=== PATIENT | female | born 1940 | race Caucasian/White ===

== ENCOUNTER 2017-02-11 11:02 | Emergency (ER) | payer MEDICARE, OTHER ==
[2017-02-11] MEDS ORDERED: Sodium Chloride 0.9% 10 ML Syringe FLUSH PRN (11:11)
[2017-02-11] MEDS ORDERED: Midazolam 1 MG/ML 2 ML SDV ONE (11:22)
[2017-02-11] MEDS ORDERED: Midazolam 1 MG/ML 2 ML SDV IVPUSH ONE (11:22)
[2017-02-11 11:47] LABS: CHLORIDE,CL 100 mmol/L (101-111); SODIUM,NA 139 mmol/L (135-145)
--- NOTE | 2017-02-11 11:57 | EDM.PDOC ---
ED HPI GENERAL MEDICAL PROBLEM - General Chief Complaint: Neurological Problem Stated Complaint: IN BY AMBULANCE Time Seen by Provider: 02/11/17 11:05 Source of Information: Reports: Patient, EMS, Family (), Old Records, RN , RN Notes Reviewed History Limitations: Reports: Altered Mental Status - History of Present Illness INITIAL COMMENTS - FREE TEXT/NARRATIVE: Arrives from home by ambulance with reporting a witnessed seizure of approx. 1 min. duration which consisted of generalized jerking movements and rigid posturing while pt was in a recliner chair. Pt did not fall from the chair. believes she bit her tongue because she had a small amt. of blood on her lip. Pt has dementia and the cares for her at home. Pt is postical on arrival, and once she began to wake up she could give no useful history due to her dementia. believes that she is somewhat more confused than her baseline. reports pt was well and at her normal baseline this morning prior to the seizure. Onset: Today, Sudden Duration: Resolved Prior to Arrival Location: Reports: Generalized Improves with: Reports: None Worsens with: Reports: None Associated Symptoms: Reports: No Other Symptoms - Related Data Allergies Allergy/AdvReac Type Severity Reaction Status Date / Time bupropion HCl Allergy Depression Verified 09/02/14 16:13 [From Wellbutrin] sulfamethoxazole Allergy Rash Verified 09/02/14 16:13 [From Bactrim] trimethoprim [From Bactrim] Allergy Rash Verified 09/02/14 16:13 Home Meds: Home Meds Levothyroxine 75 mcg PO ACBREAKFAST 09/02/14 [History] Metoprolol Succinate 200 mg PO DAILY 09/02/14 [History] Sertraline HCl [Zoloft] 150 mg PO DAILY 09/02/14 [History] cloNIDine [cloNIDine HCl] 0.1 mg PO BID 09/02/14 [History] Past Medical History Cardiovascular History: Reports: Hypertension Psychiatric History: Reports: Dementia Endocrine/Metabolic History: Reports: Hypothyroidism, Obesity/BMI 30+ Social & Family History - Family History Family Medical History: Noncontributory - Tobacco Use Smoking Status *Q: Never Smoker - Recreational Drug Use Recreational Drug Use: No - Living Situation & Occupation Living situation: Reports: , with Spouse Occupation: Retired ED ROS GENERAL - Review of Systems Review Of Systems: Unable To Obtain (due to confusion/dementia) - Physical Exam Exam: See Below Exam Limited By: Altered Mental Status General Appearance: No Apparent Distress, Obese, Other (postictal on arrival) Eye Exam: Bilateral Eye: EOMI, Normal Inspection, PERRL Ears: Normal External Exam, Hearing Grossly Normal Nose: Normal Inspection Throat/Mouth: Normal Lips, Normal Voice, Other (small tongue laceration) Head Exam: Atraumatic, Normocephalic Neck: Normal Inspection, Supple, Non-Tender, Full Range of Motion Respiratory/Chest: No Respiratory Distress, Lungs Clear, No Accessory Muscle Use , Chest Non-Tender, Decreased Breath Sounds Cardiovascular: Tachycardia, Irregularly Irregular GI/Abdominal: Normal Bowel Sounds, Soft, Non-Tender, No Distention, Other ( benign obese abdomen) (Female) Exam: Deferred Rectal (Female) Exam: Deferred Neuro Exam (Abbreviated): No Motor/Sensory Deficits, Confused, Disoriented, Slow to Respond Back Exam: Normal Inspection Extremities: Normal Inspection, Normal Range of Motion, Non-Tender Psychiatric: Flat Affect Skin Exam: Warm, Dry, Intact EKG INTERPRETATION EKG Date: 02/11/17 Time: 11:24 Rhythm: A-Fib Rate (Beats/Min): 96 [place]: Normal P-Wave: Absent QRS: Other (abnormal R wave progression) ST-T: Other (non-specific T-wave abnormalities) QT: Normal Comparison: No Change EKG Interpretation Comments: No acute ischemic changes. Course - Vital Signs Last Recorded V/S: Last Vital Signs Temp 36.6 C 02/11/17 11:55 Pulse 106 H 02/11/17 11:55 Resp 20 02/11/17 11:55 BP 184/85 H 02/11/17 11:55 Pulse Ox 97 02/11/17 11:55 - Orders/Labs/Meds Orders: Active Orders 24 hr Category Date Time Status Blood Glucose Check, Bedside [RC] ONETIME Care 02/11/17 11:11 Active EKG 12 Lead [EKG Documentation Completion] [RC] STAT Care 02/11/17 11:10 Active Peripheral IV Care [RC] . DIRECTED Care 02/11/17 11:11 Active CULTURE BLOOD [BC] Stat Lab 02/11/17 11:13 Results CULTURE BLOOD [BC] Stat Lab 02/11/17 12:02 Received Sodium Chloride 0.9% [Saline Flush] Med 02/11/17 11:11 Active 10 ml FLUSH ASDIRECTED PRN Blood Culture x2 Reflex Set [OM.PC] Stat Oth 02/11/17 11:10 Ordered Peripheral IV Insertion Adult [OM.PC] Stat Oth 02/11/17 11:10 Ordered Seizure Precautions [OM.PC] Routine Oth 02/11/17 11:11 Ordered Medication Orders Sodium Chloride (Saline Flush) 10 ml FLUSH ASDIRECTED PRN PRN Reason: Keep Vein Open Labs: Laboratory Tests 02/11/17 02/11/17 02/11/17 Range/Units 11:13 11:13 11:13 WBC 9.8 (5.0-10.0) 10^3/uL RBC 4.84 (4.2-5.4) 10^6/uL Hgb 15.0 (12.0-16.0) g/dL Hct 43.9 (37.0-47.0) % MCV 90.7 (80-100) fL MCH 31.0 (27.0-34.0) pg MCHC 34.2 (33.0-35.0) g/dL Plt Count 291 (150-450) 10^3/uL Neut % (Auto) 60.0 (42.2-75.2) % Lymph % (Auto) 31.2 (20.5-50.1) % [place] % (Auto) 6.9 (2-8) % Eos % (Auto) 1.5 (1.0-3.0) % Baso % (Auto) 0.4 (0.0-1.0) % PT 9.8 (9.0-12.0) SEC INR 1.0 (0.9-1.2) APTT 24.1 (22.0-34.0) SEC Sodium 139 (135-145) mmol/L Potassium 3.2 L (3.6-5.0) mmol/L Chloride 100 L (101-111) mmol/L Carbon Dioxide 20.0 L (21.0-31.0) mmol/L Anion Gap 22.2 BUN 18 (7-18) mg/dL Creatinine 1.1 (0.6-1.3) mg/dL Est Cr Clr Drug Dosing TNP Estimated GFR (MDRD) 48 BUN/Creatinine Ratio 16.36 Glucose 148 H (74-105) mg/dL POC Glucose (83-110) mg/dl Lactic Acid (0.5-2.2) mmol/L Calcium 9.5 (8.4-10.2) mg/dl Magnesium 2.1 (1.8-2.5) mg/dL Total Bilirubin 0.7 (0.2-1.0) mg/dL AST 32 (10-42) IU/L ALT 17 (10-60) IU/L Alkaline Phosphatase 63 (42-121) IU/L Lactate Dehydrogenase 124 (91-180) IU/L Creatine Kinase 39 (26-174) IU/L Troponin I < 0.02 (0.00-0.02) ng/ml Total Protein 7.2 (6.7-8.2) g/dl Albumin 4.5 (3.2-5.5) g/dl Globulin 2.7 Albumin/Globulin Ratio 1.67 Urine Color (YELLOW) Urine Appearance (CLEAR) Urine pH (5.0-9.0) Ur Specific [place] (1.005-1.030) Urine Protein (NEGATIVE) Urine Glucose (UA) (NEGATIVE) Urine Ketones (NEGATIVE) Urine Occult Blood (NEGATIVE) Urine Nitrite (NEGATIVE) Urine Bilirubin (NEGATIVE) Urine Urobilinogen (0.2-1.0) mg/dL Ur Leukocyte Esterase (NEGATIVE) Urine RBC /HPF Urine WBC (0-5/HPF) /HPF Ur Epithelial Cells /HPF Urine Bacteria (0-FEW/HPF) /HPF Hyaline Casts /LPF Fine Granular Casts (0/LPF) /LPF Urine Mucus /LPF Urine Opiates Screen (NEGATIVE) Ur Oxycodone Screen (NEGATIVE) Urine Methadone Screen (NEGATIVE) Ur Barbiturates Screen (NEGATIVE) U Tricyclic Antidepress (NEGATIVE) Ur Phencyclidine Scrn (NEGATIVE) Ur Amphetamine Screen (NEGATIVE) U Methamphetamines Scrn (NEGATIVE) Urine MDMA Screen (NEGATIVE) U Benzodiazepines Scrn (NEGATIVE) Urine Cocaine Screen (NEGATIVE) U Marijuana (THC) Screen (NEGATIVE) Ethyl Alcohol < 5 mg/dL 02/11/17 02/11/17 02/11/17 Range/Units 11:13 11:53 11:53 WBC (5.0-10.0) 10^3/uL RBC (4.2-5.4) 10^6/uL Hgb (12.0-16.0) g/dL Hct (37.0-47.0) % MCV (80-100) fL MCH (27.0-34.0) pg MCHC (33.0-35.0) g/dL Plt Count (150-450) 10^3/uL Neut % (Auto) (42.2-75.2) % Lymph % (Auto) (20.5-50.1) % [place] % (Auto) (2-8) % Eos % (Auto) (1.0-3.0) % Baso % (Auto) (0.0-1.0) % PT (9.0-12.0) SEC INR (0.9-1.2) APTT (22.0-34.0) SEC Sodium (135-145) mmol/L Potassium (3.6-5.0) mmol/L Chloride (101-111) mmol/L Carbon Dioxide (21.0-31.0) mmol/L Anion Gap BUN (7-18) mg/dL Creatinine (0.6-1.3) mg/dL Est Cr Clr Drug Dosing Estimated GFR (MDRD) BUN/Creatinine Ratio Glucose (74-105) mg/dL POC Glucose (83-110) mg/dl Lactic Acid 7.0 H (0.5-2.2) mmol/L Calcium (8.4-10.2) mg/dl Magnesium (1.8-2.5) mg/dL Total Bilirubin (0.2-1.0) mg/dL AST (10-42) IU/L ALT (10-60) IU/L Alkaline Phosphatase (42-121) IU/L Lactate Dehydrogenase (91-180) IU/L Creatine Kinase (26-174) IU/L Troponin I (0.00-0.02) ng/ml Total Protein (6.7-8.2) g/dl Albumin (3.2-5.5) g/dl Globulin Albumin/Globulin Ratio Urine Color Yellow (YELLOW) Urine Appearance Slightly cloudy (CLEAR) Urine pH 6.5 (5.0-9.0) Ur Specific [place] 1.020 (1.005-1.030) Urine Protein 30 H (NEGATIVE) Urine Glucose (UA) Negative (NEGATIVE) Urine Ketones Negative (NEGATIVE) Urine Occult Blood Trace-intact H (NEGATIVE) Urine Nitrite Negative (NEGATIVE) Urine Bilirubin Negative (NEGATIVE) Urine Urobilinogen 0.2 (0.2-1.0) mg/dL Ur Leukocyte Esterase Negative (NEGATIVE) Urine RBC 0-5 /HPF Urine WBC 0-5 (0-5/HPF) /HPF Ur Epithelial Cells Few /HPF Urine Bacteria Rare (0-FEW/HPF) /HPF Hyaline Casts Moderate H /LPF Fine Granular Casts Few H (0/LPF) /LPF Urine Mucus Few H /LPF Urine Opiates Screen Negative (NEGATIVE) Ur Oxycodone Screen Negative (NEGATIVE) Urine Methadone Screen Negative (NEGATIVE) Ur Barbiturates Screen Negative (NEGATIVE) U Tricyclic Antidepress Negative (NEGATIVE) Ur Phencyclidine Scrn Negative (NEGATIVE) Ur Amphetamine Screen Negative (NEGATIVE) U Methamphetamines Scrn Negative (NEGATIVE) Urine MDMA Screen Negative (NEGATIVE) U Benzodiazepines Scrn Negative (NEGATIVE) Urine Cocaine Screen Negative (NEGATIVE) U Marijuana (THC) Screen Negative (NEGATIVE) Ethyl Alcohol mg/dL 02/11/ Range/Units 12:06 WBC (5.0-10.0) 10^3/uL RBC (4.2-5.4) 10^6/uL Hgb (12.0-16.0) g/dL Hct (37.0-47.0) % MCV (80-100) fL MCH (27.0-34.0) pg MCHC (33.0-35.0) g/dL Plt Count (150-450) 10^3/uL Neut % (Auto) (42.2-75.2) % Lymph % (Auto) (20.5-50.1) % [place] % (Auto) (2-8) % Eos % (Auto) (1.0-3.0) % Baso % (Auto) (0.0-1.0) % PT (9.0-12.0) SEC INR (0.9-1.2) APTT (22.0-34.0) SEC Sodium (135-145) mmol/L Potassium (3.6-5.0) mmol/L Chloride (101-111) mmol/L Carbon Dioxide (21.0-31.0) mmol/L Anion Gap BUN (7-18) mg/dL Creatinine (0.6-1.3) mg/dL Est Cr Clr Drug Dosing Estimated GFR (MDRD) BUN/Creatinine Ratio Glucose (74-105) mg/dL POC Glucose 105 (83-110) mg/dl Lactic Acid (0.5-2.2) mmol/L Calcium (8.4-10.2) mg/dl Magnesium (1.8-2.5) mg/dL Total Bilirubin (0.2-1.0) mg/dL AST (10-42) IU/L ALT (10-60) IU/L Alkaline Phosphatase (42-121) IU/L Lactate Dehydrogenase (91-180) IU/L Creatine Kinase (26-174) IU/L Troponin I (0.00-0.02) ng/ml Total Protein (6.7-8.2) g/dl Albumin (3.2-5.5) g/dl Globulin Albumin/Globulin Ratio Urine Color (YELLOW) Urine Appearance (CLEAR) Urine pH (5.0-9.0) Ur Specific [place] (1.005-1.030) Urine Protein (NEGATIVE) Urine Glucose (UA) (NEGATIVE) Urine Ketones (NEGATIVE) Urine Occult Blood (NEGATIVE) Urine Nitrite (NEGATIVE) Urine Bilirubin (NEGATIVE) Urine Urobilinogen (0.2-1.0) mg/dL Ur Leukocyte Esterase (NEGATIVE) Urine RBC /HPF Urine WBC (0-5/HPF) /HPF Ur Epithelial Cells /HPF Urine Bacteria (0-FEW/HPF) /HPF Hyaline Casts /LPF Fine Granular Casts (0/LPF) /LPF Urine Mucus /LPF Urine Opiates Screen (NEGATIVE) Ur Oxycodone Screen (NEGATIVE) Urine Methadone Screen (NEGATIVE) Ur Barbiturates Screen (NEGATIVE) U Tricyclic Antidepress (NEGATIVE) Ur Phencyclidine Scrn (NEGATIVE) Ur Amphetamine Screen (NEGATIVE) U Methamphetamines Scrn (NEGATIVE) Urine MDMA Screen (NEGATIVE) U Benzodiazepines Scrn (NEGATIVE) Urine Cocaine Screen (NEGATIVE) U Marijuana (THC) Screen (NEGATIVE) Ethyl Alcohol mg/dL Meds: Medications Generic Name Dose Route Start Last Admin Trade Name Freq PRN Reason Stop Dose Admin Sodium Chloride 10 ml 02/11/17 11:11 Saline Flush FLUSH ASDIRECTED PRN Keep Vein Open Discontinued Medications Generic Name Dose Route Start Last Admin Trade Name Freq PRN Reason Stop Dose Admin Midazolam HCl 2 mg 02/11/17 11:22 02/11/17 11:23 Versed 1 Mg/Ml IVPUSH 02/11/17 11:23 2 mg ONETIME ONE Administration Midazolam HCl Confirm 02/11/17 11:22 Versed 1 Mg/Ml Administered 02/11/17 11:23 Dose 2 mg .ROUTE .STK-MED ONE - Radiology Interpretation Free Text/Narrative:: CT Head: no acute changes, see Rad. report. CXR: no acute process, see Rad. report. CT Results Date: 02/11/17 CT Results Time: 11:35 Departure - Departure Time of Disposition: 12:41 Disposition: DC/Tfer to [facility] 02 Condition: Undetermined Clinical Impression: New onset seizure, Dementia - Discharge Information Referrals: Merly Kulkarni MD [Primary Care Provider] - Forms: ED Department Discharge, Interfacility Transfer EMTALA - My Orders Last 24 Hours: My Active Orders 02/11/17 11:10 EKG 12 Lead [EKG Documentation Completion] [RC] STAT Blood Culture x2 Reflex Set [OM.PC] Stat Peripheral IV Insertion Adult [OM.PC] Stat 02/11/17 11:11 Blood Glucose Check, Bedside [RC] ONETIME Peripheral IV Care [RC] . DIRECTED Sodium Chloride 0.9% [Saline Flush] 10 ml FLUSH ASDIRECTED PRN Seizure Precautions [OM.PC] Routine 02/11/17 11:13 CULTURE BLOOD [BC] Stat 02/11/17 12:02 CULTURE BLOOD [BC] Stat - Assessment/Plan Last 24 Hours: My Active Orders 02/11/17 11:10 EKG 12 Lead [EKG Documentation Completion] [RC] STAT Blood Culture x2 Reflex Set [OM.PC] Stat Peripheral IV Insertion Adult [OM.PC] Stat 02/11/17 11:11 Blood Glucose Check, Bedside [RC] ONETIME Peripheral IV Care [RC] . DIRECTED Sodium Chloride 0.9% [Saline Flush] 10 ml FLUSH ASDIRECTED PRN Seizure Precautions [OM.PC] Routine 02/11/17 11:13 CULTURE BLOOD [BC] Stat 02/11/17 12:02 CULTURE BLOOD [BC] Stat
--- NOTE | 2017-02-19 18:34 | EKG ---
02/11/2017 - JAGJIT COLON - This 12-lead EKG shows atrial fibrillation with an average ventricular rate of 96 (72 to 117). Normal axis. No acute ST-segment or T-wave changes. [facility] /[id number]
== END 2017-02-11 13:50 ==
LOC: DL.ED 11:02
DX: R56.9 Unspecified convulsions (principal); F03.90 Unspecified dementia, unspecified severity, without behavioral disturbance, psychotic disturbance, mood disturbance, and anxiety; I10 Essential (primary) hypertension; Z88.2 Allergy status to sulfonamides; Z88.1 Allergy status to other antibiotic agents; Z79.899 Other long term (current) drug therapy
CPT/HCPCS: 36415; 51701; 70450; 71010; 80053; 80305; 81001; 82550; 82962; 83605; 83615; 83735; 84484; 85025; 85610; 85730; 87040; 93005; 96374; 99285; G0480; J2250; J7050; 93010

== ENCOUNTER 2019-02-07 09:36 | Inpatient (IN) | payer MEDICARE, OTHER ==
[2019-02-07 10:11] LABS: ANION GAP 12.9; CHLORIDE,CL 103 mmol/L (101-111); SODIUM,NA 139 mmol/L (135-145)
--- NOTE | 2019-02-07 12:03 | EDM.PDOC ---
ED HPI GENERAL MEDICAL PROBLEM - General Chief Complaint: Neurological Problem Stated Complaint: AMBULANCE Time Seen by Provider: 02/07/19 11:30 Source of Information: Reports: Patient, Family () History Limitations: Reports: No Limitations - History of Present Illness INITIAL COMMENTS - FREE TEXT/NARRATIVE: This 78 yo female patient was brought to the ED by [facility] due to profound weakness. The patient's reports he found her in the hallway this morning after hearing a "thump". The reports he lifted her onto a chair then assisted her to the bathroom. The patient had a loose bowel movement. When she got up to wash her hands, the patient's legs were "wobbly" and the called the ambulance. The patient has a history of dementia and does not walk around the house too much. The reports the patient did not have a loss of consciousness. The patient reports no current areas of pain. The reports the patient has been keeping 1 eye closed for the past year. The patient reports no areas of weakness at this time. Onset: Today Location: Reports: Generalized Quality: Reports: Other Severity: Moderate Improves with: Reports: None Worsens with: Reports: None Context: Reports: Other Associated Symptoms: Reports: No Other Symptoms - Related Data Allergies Allergy/AdvReac Type Severity Reaction Status Date / Time bupropion HCl Allergy Depression Verified 02/07/19 09:46 [From Wellbutrin] sulfamethoxazole Allergy Rash Verified 02/07/19 09:46 [From Bactrim] trimethoprim [From Bactrim] Allergy Rash Verified 02/07/19 09:46 Home Meds: Home Meds Levothyroxine 75 mcg PO ACBREAKFAST 09/02/14 [History] Metoprolol Succinate 100 mg PO DAILY 09/02/14 [History] Sertraline HCl [Zoloft] 150 mg PO DAILY 09/02/14 [History] Aspirin 325 mg PO DAILY 02/11/17 [History] amLODIPine Besylate [Amlodipine Besylate] 10 mg PO DAILY 02/07/19 [History] levETIRAcetam [Levetiracetam] 250 mg PO BID 02/07/19 [History] Past Medical History Cardiovascular History: Reports: Hypertension Neurological History: Reports: Other (See Below) Other Neuro History: severe dementia Psychiatric History: Reports: Dementia Endocrine/Metabolic History: Reports: Hypothyroidism, Obesity/BMI 30+ - Past Surgical History HEENT Surgical History: Reports: Tonsillectomy Female Surgical History: Reports: Cystectomy Social & Family History - Family History Family Medical History: Noncontributory - Tobacco Use Smoking Status *Q: Unknown Ever Smoked - Caffeine Use Caffeine Use: Reports: Soda - Recreational Drug Use Recreational Drug Use: No - Living Situation & Occupation Living situation: Reports: , with Spouse Occupation: Retired ED ROS GENERAL - Review of Systems Review Of Systems: Comprehensive ROS is negative, except as noted in HPI. ED EXAM, NEURO - Physical Exam Exam: See Below Exam Limited By: No Limitations General Appearance: Alert, WD/WN, No Apparent Distress Eye Exam: Bilateral Eye: EOMI, Normal Inspection, PERRL Ears: Normal External Exam, Normal Canal, Hearing Grossly Normal, Normal TMs Nose: Normal Inspection, Normal Mucosa, No Blood Throat/Mouth: Normal Inspection, Normal Lips, Normal Teeth, Normal Gums, Normal Oropharynx, Normal Voice, No Airway Compromise Head Exam: Atraumatic, Normocephalic Neck: Normal Inspection, Supple, Non-Tender, Full Range of Motion Respiratory/Chest: No Respiratory Distress, Lungs Clear, Normal Breath Sounds, No Accessory Muscle Use, Chest Non-Tender Cardiovascular: No Edema, No Gallop, No JVD, No Murmur, No Rub, Irregularly Irregular GI/Abdominal: Normal Bowel Sounds, Soft, Non-Tender, No Organomegaly, No Distention, No Abnormal Bruit, No Mass (Female) Exam: Deferred Rectal (Female) Exam: Deferred Neurological: Alert, Normal Mood/Affect, Normal Dorsiflexion, CN II-XII Intact, Normal Plantar Flexion Back Exam: Normal Inspection, Full Range of Motion, NT Extremities: Normal Inspection, Normal Range of Motion, Non-Tender, No Pedal Edema, Normal Capillary Refill Psychiatric: Normal Affect, Normal Mood Skin Exam: Warm, Dry, Intact, Normal Color, No Rash Course - Vital Signs Last Recorded V/S: Last Vital Signs Temp 36.6 C 02/07/19 09:43 Pulse 86 02/07/19 09:43 Resp 18 02/07/19 09:43 BP 145/63 H 02/07/19 09:43 Pulse Ox 100 02/07/19 09:43 Orthostatic Blood Pressure [ 114/75 Standing] Orthostatic Blood Pressure [ 125/84 Sitting] Orthostatic Blood Pressure [ 151/75 Supine] - Orders/Labs/Meds Orders: Active Orders 24 hr Category Date Time Status EKG Documentation Completion [RC] URGENT Care 02/07/19 09:45 Active CULTURE BLOOD [BC] Stat Lab 02/07/19 14:15 Ordered CULTURE BLOOD [BC] Stat Lab 02/07/19 14:15 Ordered CULTURE URINE [RM] Urgent Lab 02/07/19 09:56 Received LEVETIRACETAM, S [REF] Urgent Lab 02/07/19 09:32 Received Blood Culture x2 Reflex Set [OM.PC] Stat Oth 02/07/19 14:15 Ordered Labs: Laboratory Tests 02/07/19 02/07/19 02/07/19 Range/Units 09:32 09:32 09:56 WBC 5.5 (5.0-10.0) 10^3/uL RBC 4.58 (4.2-5.4) 10^6/uL Hgb 14.1 (12.0-16.0) g/dL Hct 42.1 (37.0-47.0) % MCV 91.9 (80-100) fL MCH 30.8 (27.0-34.0) pg MCHC 33.5 (33.0-35.0) g/dL Plt Count 191 D (150-450) 10^3/uL Neut % (Auto) 65.9 (42.2-75.2) % Lymph % (Auto) 25.2 (20.5-50.1) % [place] % (Auto) 7.1 (2-8) % Eos % (Auto) 1.6 (1.0-3.0) % Baso % (Auto) 0.2 (0.0-1.0) % Sodium 139 (135-145) mmol/L Potassium 3.9 (3.6-5.0) mmol/L Chloride 103 (101-111) mmol/L Carbon Dioxide 27.0 (21.0-31.0) mmol/L Anion Gap 12.9 BUN 15 (7-18) mg/dL Creatinine 1.0 (0.6-1.3) mg/dL Est Cr Clr Drug Dosing TNP Estimated GFR (MDRD) 54 BUN/Creatinine Ratio 15.00 Glucose 117 H (74-105) mg/dL Calcium 9.1 (8.4-10.2) mg/dl Total Bilirubin 1.0 (0.2-1.0) mg/dL AST 25 (10-42) IU/L ALT 20 (10-60) IU/L Alkaline Phosphatase 54 (42-121) IU/L Troponin I < 0.02 (0.00-0.02) ng/ml Total Protein 6.4 L (6.7-8.2) g/dl Albumin 4.1 (3.2-5.5) g/dl Globulin 2.3 Albumin/Globulin Ratio 1.78 Urine Color Yellow (YELLOW) Urine Appearance Slightly cloudy (CLEAR) Urine pH 7.0 (5.0-9.0) Ur Specific [place] 1.020 (1.005-1.030) Urine Protein Negative (NEGATIVE) Urine Glucose (UA) Negative (NEGATIVE) Urine Ketones Negative (NEGATIVE) Urine Occult Blood Negative (NEGATIVE) Urine Nitrite Positive H (NEGATIVE) Urine Bilirubin Negative (NEGATIVE) Urine Urobilinogen 0.2 (0.2-1.0) mg/dL Ur Leukocyte Esterase Small H (NEGATIVE) Urine RBC 0-5 /HPF Urine WBC 10-20 H (0-5/HPF) /HPF Ur Epithelial Cells Rare (NOT SEEN) /HPF Amorphous Sediment Moderate H (NOT SEEN) /HPF Urine Bacteria Many H (0-FEW/HPF) /HPF Urine Mucus Not seen (NOT SEEN) /LPF Departure - Departure Time of Disposition: 14:16 Disposition: Admitted As Inpatient 66 Condition: Fair Clinical Impression: Weakness UTI (urinary tract infection) Qualifiers: Urinary tract infection type: site unspecified Hematuria presence: without hematuria Qualified Code(s): N39.0 - Urinary tract infection, site not specified - Discharge Information *PRESCRIPTION DRUG MONITORING PROGRAM REVIEWED*: Not Applicable *COPY OF PRESCRIPTION DRUG MONITORING REPORT IN PATIENT SUSU: Not Applicable Forms: ED Department Discharge Care Plan Goals: Discussed the patient's history, examination and lab results with Dr. Mares. Dr. Mares accepted the patient for continued evaluation and management as an inpatient at [facility]. Sepsis Event Note - Evaluation Sepsis Screening Result: No Definite Risk - Focused Exam Vital Signs: Vital Signs Temp Pulse Resp BP Pulse Ox 02/07/19 09:43 36.6 C 86 18 145/63 H 100 Date Exam was Performed: 12/20/19 Time Exam was Performed: 14:16 - My Orders Last 24 Hours: My Active Orders 02/07/19 09:32 LEVETIRACETAM, S [REF] Urgent 02/07/19 09:45 EKG Documentation Completion [RC] URGENT 02/07/19 09:56 CULTURE URINE [RM] Urgent 02/07/19 14:15 CULTURE BLOOD [BC] Stat CULTURE BLOOD [BC] Stat Blood Culture x2 Reflex Set [OM.PC] Stat - Assessment/Plan Last 24 Hours: My Active Orders 02/07/19 09:32 LEVETIRACETAM, S [REF] Urgent 02/07/19 09:45 EKG Documentation Completion [RC] URGENT 02/07/19 09:56 CULTURE URINE [RM] Urgent 02/07/19 14:15 CULTURE BLOOD [BC] Stat CULTURE BLOOD [BC] Stat Blood Culture x2 Reflex Set [OM.PC] Stat
--- NOTE | 2019-02-07 13:44 | CT ---
EXAMINATION: Head wo Cont SEX: Female AGE: 78 years CLINICAL HISTORY: 78-year-old 150 pound hypertensive "demented" patient injured in ground-level fall (no LOC) patient reported on previous CT scan of the head 11 February 2017 to have "no evidence acute intracranial abnormality" Scan technique: Volume acquisition of data emergency unenhanced CT scan of the head and brain obtained with patient lying supine on the Siemens multislice scanner [place], [place]. All data archived in the PACS system for storage, reformatting axial/sagittal/coronal planes and study. Interpretation: 1. Generalized chronic multi-infarct ischemic changes identified in the subcortical and deep white matter of both cerebral hemispheres. Note: Asymmetric isolated new lacunar infarct basal ganglia on the right compared to 11 February 2017 exam. 2. Generalized atrophy pattern symmetric with underlying mirror-image normal ventricular system unchanged. 3. No supratentorial or posterior fossa mass lesion. Physiologic calcifications. 4. Uniformly thick bony calvarium without sign of skull fracture, underlying brain contusion or epidural/subdural hematoma. 5. No evidence for acute intracerebral/intraventricular/subarachnoid bleed. 6. Cerebellum and brainstem unremarkable for age and unchanged since 2017. 7. Symmetric clear pneumatization of the paranasal and mastoid sinuses. 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 No intracranial mass, hydrocephalus or bleed. INTERPRETATION: 1. CONCLUSION:
[2019-02-07] MEDS ORDERED: Acetaminophen/oxyCODONE 325-5 MG Tab PO PRN (14:59)
[2019-02-07] MEDS ORDERED: Acetaminophen 325 MG Tab PO PRN (14:59)
[2019-02-07] MEDS ORDERED: Docusate Sodium 100 MG Cap PO PRN (14:59)
[2019-02-07] MEDS ORDERED: Sodium Chloride 0.9% 1,000 ML IV SCH (15:00)
--- NOTE | 2019-02-07 15:58 | HP ---
CHIEF COMPLAINT: Generalized weakness. HISTORY OF PRESENT ILLNESS: The patient is a 78-year-old female, who was brought in by ambulance to the emergency room because of profound weakness. The patient's reports that he found her in the hallway this morning after hearing a thump and the report that he lifted her on to a chair, then assisted her to the bathroom, and when he let her walk on her own, he noticed that her legs were wobbly and because of this, then her called the ambulance and she was brought to the emergency room. In the emergency room, she had a CAT scan of the head, which showed a new lacunar infarct when compared to CAT scan of the head in 2017. Her urinalysis showed signs of urinary tract infection. Because of this, she was then admitted for further evaluation and management. PAST MEDICAL HISTORY: Remarkable for dementia and hypothyroidism and hypertension. SOCIAL HISTORY: The patient lives with her in her own house. Nonsmoker, nonalcohol drinker. REVIEW OF SYSTEMS: The patient denies any headache, chest pain, shortness of breath, abdominal pain, nausea, vomiting, dysuria, or flank pains. HOME MEDICATION: Levothyroxine, aspirin, Keppra, amlodipine, Zoloft, and metoprolol. ALLERGIES: Wellbutrin and Bactrim. PHYSICAL EXAMINATION: General: The patient is alert, oriented, not in any acute distress. Vital Signs: Blood pressure is 145/63, pulse of 86, respirations 18, temperature of 36.6, pulse oximetry is 100% on room air. SHEENT: Normocephalic. No signs of trauma. Pupils equal. Extraocular muscles are intact. No facial droop. Neck: Normocephalic. No C-spine tenderness. Heart: Regular rate and rhythm. Normal S1 and S2. No gallops. No rubs. Lungs: Equal bilaterally. No crackles. No wheezing. Abdomen: Soft and nontender. Bowel sounds positive. Extremities: Negative for any gross deformities. No calf tenderness. No significant pedal edema. Neurologic: Negative for any lateralizing sign. LABORATORY DATA: CBC unremarkable. Basic metabolic panel unremarkable. Urinalysis is remarkable for 10 to 20 wbc's and many bacteria and positive for nitrite. CAT scan of the head showed multi-infarct ischemic disease with new lacunar infarct since January 2017. ADMITTING DIAGNOSES: 1. Generalized weakness. 2. Cerebrovascular disease with new lacunar infarct. 3. Urinary tract infection. 4. Dementia. 5. Hypothyroidism. 6. Hypertension. TREATMENT PLAN: The patient is going to be admitted to General Medicine floor acute care. She will be started on IV fluids. She will be started on IV antibiotics for her urinary tract infection, Rocephin, and blood cultures and urine cultures were sent. We will also add Plavix to her current regimen of aspirin, and we will continue with the rest of her home medication. [facility] /[id number]
[2019-02-07] MEDS ORDERED: Clopidogrel 75 MG Tab PO ONE (16:00)
[2019-02-07] MEDS ORDERED: Aspirin 81 MG Tab.EC PO ONE (16:00)
[2019-02-07] MEDS: cefTRIAXone 1 GM in Sodium Chloride 0.9% 50 ML IV SCH (17:19)
[2019-02-07] MEDS ORDERED: Sodium Chloride 0.9% 10 ML Syringe FLUSH PRN (17:57)
[2019-02-07] MEDS: levETIRAcetam 500 MG Tab PO SCH (22:18)
[2019-02-08 08:21] LABS: ANION GAP 13.4; CHLORIDE,CL 102 mmol/L (101-111); SODIUM,NA 139 mmol/L (135-145)
[2019-02-08] MEDS: Sertraline 50 MG Tab PO SCH (08:46)
[2019-02-08] MEDS: amLODIPine 5 MG Tab PO SCH (08:46)
[2019-02-08] MEDS: Aspirin 81 MG Tab.EC PO SCH (08:46)
[2019-02-08] MEDS: Metoprolol Tartrate 50 MG Tab PO SCH (08:47)
[2019-02-08] MEDS: levETIRAcetam 500 MG Tab PO SCH ×2 (08:47→21:52)
[2019-02-08] MEDS: Clopidogrel 75 MG Tab PO SCH (08:47)
[2019-02-08] MEDS: Enoxaparin 30 MG/0.3 ML Syringe SUBCUT SCH (08:49)
--- NOTE | 2019-02-08 10:06 | PN ---
DATE: 02/08/2019 SUBJECTIVE: The patient last night had some sundowning and got agitated and had pulled her IV fluid out twice, but this morning the patient is doing well. She denies any headache, chest pain, shortness of breath, nor any other complaints. LABORATORY DATA: Lab workup this morning: CBC unremarkable. Chem-6: Potassium is 3.4. The rest of the panel unremarkable. OBJECTIVE: Vital Signs: Blood pressure is 107/59, pulse of 62, respiration of 16, temperature of 98. Heart: Regular rate and rhythm. Normal S1 and S2. No gallops. No rubs. Lungs: Equal bilaterally. No crackles. No wheezing. Abdomen: Soft and nontender. Extremities: Negative for any significant pedal edema. No calf tenderness. PLAN: Blood cultures and urine cultures are still pending. We will continue with her present management. We will saline lock her IV fluids and continue with IV Rocephin for her urinary tract infection. [facility] /[id number]
[2019-02-08] MEDS: cefTRIAXone 1 GM in Sodium Chloride 0.9% 50 ML IV SCH (16:21)
[2019-02-09] MEDS: Sertraline 50 MG Tab PO SCH (09:05)
[2019-02-09] MEDS: Aspirin 81 MG Tab.EC PO SCH (09:06)
[2019-02-09] MEDS: amLODIPine 5 MG Tab PO SCH (09:06)
[2019-02-09] MEDS: Metoprolol Tartrate 50 MG Tab PO SCH (09:07)
[2019-02-09] MEDS: levETIRAcetam 500 MG Tab PO SCH (09:07)
[2019-02-09] MEDS: Clopidogrel 75 MG Tab PO SCH (09:07)
[2019-02-09] MEDS: Enoxaparin 30 MG/0.3 ML Syringe SUBCUT SCH (09:09)
--- NOTE | 2019-02-09 09:43 | DISCH ---
FINAL DIAGNOSES: 1. Urinary tract infection with Staphylococcus coagulase negative organism. 2. Generalized weakness secondary to #1. 3. Cerebrovascular disease with new lacunar infarct. 4. Dementia. 5. Hypothyroidism. 6. Hypertension. BRIEF HISTORY OF PRESENT ILLNESS: Please see H and P. PERTINENT LAB, X-RAY, AND OTHER TESTS: See H and P. Urine culture came back Staphylococcus coagulase negative. Susceptible to most antibiotics. HOSPITAL COURSE: The patient was admitted to General Medicine floor. She was started on IV fluids and also empirically started on IV Rocephin. During the hospitalization, the patient had some sundowning and confusion, but otherwise unremarkable. The rest of the hospital course was uncomplicated, and she was subsequently discharged back to her own home on 02/09/2019. CONDITION ON DISCHARGE: Improved. FOLLOWUP: She is going to follow up with Carleen Macdonald, her primary care provider, in 7 to 10 days. [facility] /[id number]
--- NOTE | 2019-02-10 12:02 | PN ---
DATE: 02/09/2019 SUBJECTIVE: The patient is doing fairly well. Still gets confused occasionally, but the patient denies any significant complaints and there are no other concerns noted from the nursing staff. Urine culture came back positive for Staphylococcus coagulase-negative, and this is susceptible to most antibiotics. OBJECTIVE: Vital Signs: Blood pressure is 142/55, pulse of 93, respiration of 20, and saturation is 97% on room air. Heart: Regular rate and rhythm. Normal S1 and S2. No gallops. No rubs. Lungs: Equal bilaterally. No crackles. No wheezing. Abdomen: Soft. Nontender. Bowel sounds positive. Extremities: Negative for any calf tenderness. No gross deformities. PLAN: We will discharge the patient home today, and we will continue with doxycycline 100 mg b.i.d. for the next 5 days. We will also set her up for a followup appointment with Carleen Macdonald in 7 to 10 days. [facility] /[id number]
== END 2019-02-09 13:40 | disposition home or self-care (01) | DRG 690 ==
LOC: DL.ED 09:36 → DL.MS 14:18 → UNDOADMIN 14:18 → DL.ED 14:29 → DL.MS 20:04
PROVIDERS: ADMIT Internal Medicine; ATTEND Internal Medicine
DX: N39.0 Urinary tract infection, site not specified (principal); R53.1 Weakness; I10 Essential (primary) hypertension; B95.7 Other staphylococcus as the cause of diseases classified elsewhere; E03.9 Hypothyroidism, unspecified; F03.90 Unspecified dementia, unspecified severity, without behavioral disturbance, psychotic disturbance, mood disturbance, and anxiety; E66.9 Obesity, unspecified; Z86.73 Personal history of transient ischemic attack (TIA), and cerebral infarction without residual deficits; Z79.890 Hormone replacement therapy; Z79.82 Long term (current) use of aspirin; Z88.8 Allergy status to other drugs, medicaments and biological substances; Z79.899 Other long term (current) drug therapy; Z88.2 Allergy status to sulfonamides; Z88.1 Allergy status to other antibiotic agents; Z90.89 Acquired absence of other organs; Z68.31 Body mass index [BMI] 31.0-31.9, adult
CPT/HCPCS: 36415; 70450; 80048; 80053; 80177; 81001; 84484; 85025; 87040; 87086; 87088; 87186; 93005; 97161-GP; 99285-25; A9270-GY; J0696; J1650; J7030; J7050

== ENCOUNTER 2021-01-11 23:15 | Observation (INO) | payer MEDICARE, OTHER ==
[2021-01-11] MEDS: Morphine 2 MG/ML SYRINGE SUBCUT ONE (23:58)
[2021-01-12] MEDS: Morphine 2 MG/ML SYRINGE SUBCUT ONE (00:06)
--- NOTE | 2021-01-12 00:25 | PCM.SN.2 ---
- Free Text/Narrative Note: 80 y/o female, resident of [facility], sent by ambulance to ER for evaluation of left hip pain with possible deformity (per SNF nursing). Relevant PMH: On 05/18/20, she complained of left thigh pain. CT scan obtained on 05/18/20 showed a transverse fracture of the neck of the left femur. A head CT showed no acute findings. There was no known fall prior to this finding, but it is felt that she must have fallen at some point. She was trasnferred to [facility] and on 12/21/20, she underwent a left hemiarthroplasty by Dr.Timothy Meyer, Orthopedics. Upon return to [place] on 12/22/2020, she had developed a severe oropharyngeal dysphagia and was NPO. She received IV hydration for several days. We then obtained a swallowing evaluation and she now is a puree diet with nectar-thick liquids. She can have ice chips, with nursing supervision. She has been seen by PT/OT. They have had her up and walking, otherwise she has been able to propel herself in her wheelchair. Yesterday, her had visited and when he left she was in her recliner in a recumbent position. He did not inform the nursing staff when he left. The nursing staff later found her on the floor beside the recliner; the legs of the recliner were still elevated. At that time, there was no complaint of pain or other concerns. No one called to today to report any new problems. I received a call from nursing at 23:06, informing me of Janny's left hip pain and a possible "deformity" of the left hip. Janny was transported by ground ambulance to the [place] ER. I discussed the case with the ER Provider, MIKAYLA Grimaldo. A single x-ray of the left shows that the prosthetic head of the hemiarthroplasty is superiorly dislocated from the acetabulum. Examination shows that the left foot is NVI. I called [facility]. There is no Orthopedist building consultant this evening. Dr. Meyer, the surgeon who operated on Janny, will be available in the morning. We will admit Janny overnight for observation and we will arrange for transfer to [place] for reduction of the dislocation. This was discussed with her , Agustin Mendez, who is in agreement with the plan. Impression: S/P transverse fracture of the neck of the left femur, 12/19/2020. S/P left hemiarthroplasy, [facility], 12/21/2020. Now with dislocation of the hemiarthroplasty from the acetabulum. Plan: Admit overnight. Will contact Dr. Meyer in the morning to arrange for reduction of the dislocation. Meds reconciled in [facility]. Code Status: DNR. DNI.
--- NOTE | 2021-01-12 00:42 | EDM.PDOC ---
ED HPI GENERAL MEDICAL PROBLEM - General Chief Complaint: Lower Extremity Injury/Pain Stated Complaint: LEFT HIP PAIN PER Time Seen by Provider: 01/12/21 00:20 Source of Information: Reports: EMS, Family History Limitations: Reports: Altered Mental Status (dementia) - History of Present Illness INITIAL COMMENTS - FREE TEXT/NARRATIVE: ED via [facility], with report of left hip deformity. Patient reported to have been found on floor yesterday. Was left in recliner by at [facility] then found on floor by staff. No reported head trauma or change in usual mental st ate Tonight staff noted c/o pain and deformity to left hip. Recent fall 12/18 and tx to [place] from as only facility with bed availability at that time. Hip repaired. Returned to [facility], dysphagia during hospitalization with subsequent swallow now taking study puree consistency with supervision, all medications crushed. Reported by Dr Keenan, patient is currently DNR/DNI at [facility]. Patient alert on arrival to ED. - Related Data Allergies Allergy/AdvReac Type Severity Reaction Status Date / Time bupropion HCl Allergy Depression Verified 01/12/21 00:10 [From Wellbutrin] sulfamethoxazole Allergy Rash Verified 01/12/21 00:10 [From Bactrim] trimethoprim [From Bactrim] Allergy Rash Verified 01/12/21 00:10 Home Meds: Home Meds Acetaminophen [Tylenol Extra Strength] 500 mg PO TID 01/11/21 [History] Levothyroxine [Synthroid] 50 mcg PO QAM 01/11/21 [History] Sertraline HCl 50 mg PO BEDTIME 01/11/21 [History] cloNIDine [Catapres TTS-2] 0.2 mg TRDERM WEEKLY 01/11/21 [History] levETIRAcetam [Levetiracetam] 250 mg PO BID 01/11/21 [History] cefTRIAXone [Rocephin] 1 gm IV Q24H vial 01/12/21 [Rx] Past Medical History HEENT History: Reports: Cataract, Impaired Vision Cardiovascular History: Reports: Afib, CAD, Hypertension Respiratory History: Reports: None Gastrointestinal History: Reports: None Genitourinary History: Reports: None HOTEL DESK CLERK History: Reports: , Other (See Below) Other HOTEL DESK CLERK History: overy removed Musculoskeletal History: Reports: Fracture, Other (See Below) Other Musculoskeletal History: left hip fx. Neurological History: Reports: Seizure, Other (See Below) Other Neuro History: severe dementia Psychiatric History: Reports: Dementia, Depression, Psychosis Endocrine/Metabolic History: Reports: Hypothyroidism, Obesity/BMI 30+ Hematologic History: Reports: None Oncologic (Cancer) History: Reports: None - Infectious Disease History Infectious Disease History: Reports: Chicken Pox - Past Surgical History Head Surgeries/Procedures: Reports: None HEENT Surgical History: Reports: Tonsillectomy Female Surgical History: Reports: Cystectomy Social & Family History - Family History Family Medical History: No Pertinent Family History - Tobacco Use Tobacco Use Status *Q: Never Tobacco User Second Hand Smoke Exposure: No - Caffeine Use Caffeine Use: Reports: Coffee, Tea - Recreational Drug Use Recreational Drug Use: No - Living Situation & Occupation Living situation: Reports: , with Spouse Occupation: Retired Review of Systems - Review of Systems Review Of Systems: Comprehensive ROS is negative, except as noted in HPI. ED EXAM, GENERAL - Physical Exam Exam: See Below Exam Limited By: No Limitations General Appearance: Alert, Moderate Distress, Other (confused, gross deformity left hip) Eye Exam: Bilateral Eye: EOMI Ears: Normal External Exam Nose: Normal Inspection Throat/Mouth: Normal Inspection Head: Atraumatic, Normocephalic Neck: Normal Inspection, Full Range of Motion Respiratory/Chest: No Respiratory Distress, Lungs Clear, Normal Breath Sounds Cardiovascular: No JVD, Other (slightly irregular) GI/Abdominal: Normal Bowel Sounds, Soft Extremities: Pedal Edema (mild left), Limited Range of Motion (gross deformity left hip, pain with minimal movement), Other (pedal pulses left present). No: Pallor Neurological: Alert, Memory Loss Recent Events. No: Oriented Skin Exam: Warm, Dry, Intact, Ecchymosis (outer right ankle purple light bruisin g, no swelling), Wound/Incision (surgical incision left hip beata intact, mild errythema no drainage) Course - Vital Signs Last Recorded V/S: Last Vital Signs Temp 98.6 F 01/12/21 07:44 Pulse 117 H 01/12/21 10:52 Resp 16 01/12/21 10:52 BP 138/87 01/12/21 10:52 Pulse Ox 99 01/12/21 10:30 - Orders/Labs/Meds Labs: Laboratory Tests 01/12/21 01/12/21 01/12/21 Range/Units 00:20 00:20 00:30 WBC 7.5 (5.0-10.0) 10^3/uL RBC 3.93 L (4.2-5.4) 10^6/uL Hgb 12.0 D (12.0-16.0) g/dL Hct 36.6 L (37.0-47.0) % MCV 93.1 (80-100) fL MCH 30.5 (27.0-34.0) pg MCHC 32.8 L (33.0-35.0) g/dL Plt Count 194 (150-450) 10^3/uL Neut % (Auto) 70.6 (42.2-75.2) % Lymph % (Auto) 21.2 (20.5-50.1) % [place] % (Auto) 6.8 (2-8) % Eos % (Auto) 1.3 (1.0-3.0) % Baso % (Auto) 0.1 (0.0-1.0) % Sodium 140 (136-145) mmol/L Potassium 3.5 (3.5-5.1) mmol/L Chloride 105 (98-107) mmol/L Carbon Dioxide 25 (21-32) mmol/L Anion Gap 13.5 H (7-13) mEq/L BUN 20 H (7-18) mg/dL Creatinine 0.92 (0.55-1.02) mg/dL Est Cr Clr Drug Dosing TNP Estimated GFR (MDRD) 59 BUN/Creatinine Ratio 21.7 (No establ ref range) Glucose 105 H (70-99) mg/dL Calcium 8.3 L (8.5-10.1) mg/dL Total Bilirubin 0.6 (0.2-1.0) mg/dL AST 23 (15-37) U/L ALT 24 (14-59) U/L Alkaline Phosphatase 176 H (46-116) U/L Total Protein 5.8 L (6.4-8.2) g/dL Albumin 2.7 L (3.4-5.0) g/dL Globulin 3.1 Albumin/Globulin Ratio 0.87 Urine Color (YELLOW) Urine Appearance (CLEAR) Urine pH (5.0-9.0) Ur Specific [place] (1.005-1.030) Urine Protein (NEGATIVE) Urine Glucose (UA) (NEGATIVE) Urine Ketones (NEGATIVE) Urine Occult Blood (NEGATIVE) Urine Nitrite (NEGATIVE) Urine Bilirubin (NEGATIVE) Urine Urobilinogen (0.2-1.0) mg/dL Ur Leukocyte Esterase (NEGATIVE) Urine RBC (0-5) /HPF Urine WBC (0-5/HPF) /HPF Ur Epithelial Cells (NOT SEEN) /HPF Urine Bacteria (0-FEW/HPF) /HPF SARS-CoV-2 RNA (MARLON) Negative (NEGATIVE) 01/12/21 Range/Units 00:45 WBC (5.0-10.0) 10^3/uL RBC (4.2-5.4) 10^6/uL Hgb (12.0-16.0) g/dL Hct (37.0-47.0) % MCV (80-100) fL MCH (27.0-34.0) pg MCHC (33.0-35.0) g/dL Plt Count (150-450) 10^3/uL Neut % (Auto) (42.2-75.2) % Lymph % (Auto) (20.5-50.1) % [place] % (Auto) (2-8) % Eos % (Auto) (1.0-3.0) % Baso % (Auto) (0.0-1.0) % Sodium (136-145) mmol/L Potassium (3.5-5.1) mmol/L Chloride (98-107) mmol/L Carbon Dioxide (21-32) mmol/L Anion Gap (7-13) mEq/L BUN (7-18) mg/dL Creatinine (0.55-1.02) mg/dL Est Cr Clr Drug Dosing Estimated GFR (MDRD) BUN/Creatinine Ratio (No establ ref range) Glucose (70-99) mg/dL Calcium (8.5-10.1) mg/dL Total Bilirubin (0.2-1.0) mg/dL AST (15-37) U/L ALT (14-59) U/L Alkaline Phosphatase (46-116) U/L Total Protein (6.4-8.2) g/dL Albumin (3.4-5.0) g/dL Globulin Albumin/Globulin Ratio Urine Color Yellow (YELLOW) Urine Appearance Slightly cloudy (CLEAR) Urine pH 8.5 (5.0-9.0) Ur Specific [place] 1.015 (1.005-1.030) Urine Protein Negative (NEGATIVE) Urine Glucose (UA) Negative (NEGATIVE) Urine Ketones Negative (NEGATIVE) Urine Occult Blood Moderate H (NEGATIVE) Urine Nitrite Positive H (NEGATIVE) Urine Bilirubin Negative (NEGATIVE) Urine Urobilinogen 0.2 (0.2-1.0) mg/dL Ur Leukocyte Esterase Large H (NEGATIVE) Urine RBC 10-20 H (0-5) /HPF Urine WBC 30-40 H (0-5/HPF) /HPF Ur Epithelial Cells Few (NOT SEEN) /HPF Urine Bacteria Many H (0-FEW/HPF) /HPF SARS-CoV-2 RNA (MARLON) (NEGATIVE) Meds: Medications Discontinued Medications Generic Name Dose Route Start Last Admin Trade Name Freq PRN Reason Stop Dose Admin Acetaminophen 500 mg 01/12/21 09:00 01/12/21 09:16 Acetaminophen 500 Mg Tab PO Not Given TID PERRY Clonidine HCl 0.2 mg 01/14/21 09:00 Clonidine 0.1 Mg/Day Transdermal Patch TOP Q7D PERRY Ceftriaxone Sodium 1 gm/ 50 mls @ 100 mls/hr 01/12/21 21:00 Sodium Chloride IV Q24H PERRY Ceftriaxone Sodium 1 gm/ 50 mls @ 100 mls/hr 01/12/21 02:00 01/12/21 02:01 Sodium Chloride IV 01/12/21 02:29 100 mls/hr NOW ONE Administration Sodium Chloride 1,000 mls @ 75 mls/hr 01/12/21 01:45 01/12/21 02:01 Normal Saline IV 75 mls/hr ASDIRECTED PERRY Administration Ibuprofen 400 mg 01/12/21 01:40 Ibuprofen 400 Mg Tab PO Q6H PRN Pain (mild 1-3) Levothyroxine Sodium 50 mcg 01/12/21 06:00 01/12/21 05:33 Levothyroxine 50 Mcg Tab PO 50 mcg 0600 PERRY Administration Morphine Sulfate 2 mg 01/11/21 23:52 01/12/21 00:06 Morphine 2 Mg/Ml Syringe SUBCUT 01/11/21 23:53 2 mg ONETIME ONE Administration Morphine Sulfate 2 mg 01/12/21 00:52 01/12/21 00:57 Morphine 2 Mg/Ml Syringe IVPUSH 01/12/21 00:53 2 mg ONETIME ONE Administration Morphine Sulfate 2 mg 01/12/21 01:15 01/12/21 01:42 Morphine 2 Mg/Ml Syringe IVPUSH 01/12/21 01:16 2 mg ONETIME ONE Administration Morphine Sulfate 1 mg 01/12/21 01:38 01/12/21 09:15 Morphine 2 Mg/Ml Syringe IVPUSH 1 mg Q4H PRN Administration moderate to severe pain, Morphine Sulfate 1 mg 01/12/21 10:57 01/12/21 11:06 Morphine 2 Mg/Ml Syringe IVPUSH 01/12/21 10:58 1 mg ONETIME ONE Administration Non-Formulary Medication 250 mg 01/12/21 09:00 Levetiracetam [Levetiracetam] PO BID PERRY Ondansetron HCl 4 mg 01/12/21 01:40 Ondansetron 4 Mg/2 Ml Sdv IVPUSH Q6H PRN Nausea/Vomiting Sertraline HCl 50 mg 01/12/21 21:00 Sertraline 50 Mg Tab PO BEDTIME PERRY Sodium Chloride 10 ml 01/12/21 01:40 Sodium Chloride 0.9% 10 Ml Syringe FLUSH ASDIRECTED PRN Keep Vein Open Departure - Departure Time of Disposition: 01:19 Disposition: Refer to Observation Condition: Fair Clinical Impression: Hx of seizure disorder Dislocated hip Qualifiers: Encounter type: initial encounter Laterality: left Qualified Code(s): S73.005A - Unspecified dislocation of left hip, initial encounter Dysphagia Qualifiers: Dysphagia type: unspecified Qualified Code(s): R13.10 - Dysphagia, unspecified Dementia Qualifiers: Dementia type: unspecified type Dementia behavioral disturbance: without behavioral disturbance Qualified Code(s): F03.90 - Unspecified dementia without behavioral disturbance - Discharge Information *PRESCRIPTION DRUG MONITORING PROGRAM REVIEWED*: No *COPY OF PRESCRIPTION DRUG MONITORING REPORT IN PATIENT SUSU: No Sepsis Event Note (ED) - Evaluation Sepsis Screening Result: No Definite Risk
[2021-01-12] MEDS ORDERED: Morphine 2 MG/ML SYRINGE IVPUSH ONE ×3 (00:52→10:57)
[2021-01-12 00:54] LABS: ANION GAP 13.5 mEq/L (7-13); CHLORIDE,CL 105 mmol/L (98-107); SODIUM,NA 140 mmol/L (136-145)
--- NOTE | 2021-01-12 01:03 | CR ---
PROCEDURE INFORMATION: Exam: XR Left Femur Exam date and time: 01/12/2021 12:02 AM Age: 80 years old Clinical indication: Other: Found on floor pain; Prior surgery; Surgery date: 1-6 months TECHNIQUE: Imaging protocol: XR Left femur. Views: 1 view. COMPARISON: CT Pelvis wo Cont 12/19/2020 9:05 AM FINDINGS: Bones/joints: The new left femoral head replacement is subluxed superiorly with probable small avulsion fracture from the acetabulum. Soft tissues: Unremarkable. IMPRESSION: Subluxation of the left femoral head replacement. A small calcific fragment just dorsal to acetabulum appears to be new.
[2021-01-12] MEDS ORDERED: Sodium Chloride 0.9% 10 ML Syringe FLUSH PRN (01:40)
[2021-01-12] MEDS ORDERED: Ondansetron 4 MG/2 ML SDV IVPUSH PRN (01:40)
[2021-01-12] MEDS ORDERED: Ibuprofen 400 MG Tab PO PRN (01:40)
[2021-01-12] MEDS ORDERED: Sodium Chloride 0.9% 1,000 ML IV SCH (01:45)
--- NOTE | 2021-01-12 01:57 | PCM.HP ---
H&P History of Present Illness - General Date of Service: 01/12/21 Admit Problem/Dx: Admission Diagnosis/Problem Admission Diagnosis/Problem Dislocation of internal left hip prosthesis Source of Information: Provider (ER and dr. Kulkarni) - History of Present Illness Initial Comments - Free Text/Narative: reviewed dr. Kulkarni's note in brief: recent left hip fx s/p surgical repair presented with left hip dislocation surgeon not available currently but most likely will be able to attend to pt in about 6 hours pt is in no distress when leg is not moved severe pain with movements, repositioning of the leg, - Related Data Allergies/Adverse Reactions: Allergies Allergy/AdvReac Type Severity Reaction Status Date / Time bupropion HCl Allergy Depression Verified 01/12/21 00:10 [From Wellbutrin] sulfamethoxazole Allergy Rash Verified 01/12/21 00:10 [From Bactrim] trimethoprim [From Bactrim] Allergy Rash Verified 01/12/21 00:10 Home Medications: Home Meds Acetaminophen [Tylenol Extra Strength] 500 mg PO TID 01/11/21 [History] Levothyroxine [Synthroid] 50 mcg PO QAM 01/11/21 [History] Sertraline HCl 50 mg PO BEDTIME 01/11/21 [History] cloNIDine [Catapres TTS-2] 0.2 mg TRDERM WEEKLY 01/11/21 [History] levETIRAcetam [Levetiracetam] 250 mg PO BID 01/11/21 [History] Past Medical History HEENT History: Reports: Cataract, Impaired Vision Cardiovascular History: Reports: Afib, CAD, Hypertension Respiratory History: Reports: None Gastrointestinal History: Reports: None Genitourinary History: Reports: None QUALITY COORDINATOR History: Reports: , Other (See Below) Other OB/BYN History: overy removed Musculoskeletal History: Reports: Fracture, Other (See Below) Other Musculoskeletal History: left hip fx. Neurological History: Reports: Seizure, Other (See Below) Other Neuro History: severe dementia Psychiatric History: Reports: Dementia, Depression, Psychosis Endocrine/Metabolic History: Reports: Hypothyroidism, Obesity/BMI 30+ Hematologic History: Reports: None Oncologic (Cancer) History: Reports: None - Infectious Disease History Infectious Disease History: Reports: Chicken Pox - Past Surgical History Head Surgeries/Procedures: Reports: None HEENT Surgical History: Reports: Tonsillectomy Female Surgical History: Reports: Cystectomy Social & Family History - Family History Family Medical History: No Pertinent Family History - Tobacco Use Tobacco Use Status *Q: Never Tobacco User Second Hand Smoke Exposure: No - Caffeine Use Caffeine Use: Reports: Coffee, Tea - Recreational Drug Use Recreational Drug Use: No - Living Situation & Occupation Living situation: Reports: , with Spouse Occupation: Retired H&P Review of Systems - Review of Systems: Review Of Systems: Unable To Obtain Reason Not Obtained: limited due to pt's dementia General: Denies: Fever Genitourinary: Reports: Other (chronic quevedo catheter) Musculoskeletal: Reports: Other (left hip dislocation left leg internally rotated) Psychiatric: Reports: Confusion Exam - Exam Exam: See Below - Vital Signs Vital Signs: Last Vital Signs Temp 97 F 01/12/21 01:03 Pulse 90 01/12/21 01:03 Resp 16 01/12/21 01:03 BP 109/89 01/12/21 01:03 Pulse Ox 93 L 01/12/21 01:03 Weight: 153 lb - Exam Quality Assessment: No: Supplemental Oxygen General: Alert. No: Oriented Lungs: Normal Respiratory Effort, Decreased Breath Sounds Cardiovascular: Irregular Rhythm GI/Abdominal Exam: Normal Bowel Sounds, Soft, Non-Tender (Female) Exam: Other (quevedo catheter) Extremities: Pedal Edema (trace b/l edema), Other (left hip dislocation , palpable left dorsalis a pedis pulse) - Patient Data Lab Results Last 24 hrs: Laboratory Results - last 24 hr 01/12/21 01/12/21 01/12/21 Range/Units 00:20 00:20 00:30 WBC 7.5 (5.0-10.0) 10^3/uL RBC 3.93 L (4.2-5.4) 10^6/uL Hgb 12.0 D (12.0-16.0) g/dL Hct 36.6 L (37.0-47.0) % MCV 93.1 (80-100) fL MCH 30.5 (27.0-34.0) pg MCHC 32.8 L (33.0-35.0) g/dL Plt Count 194 (150-450) 10^3/uL Neut % (Auto) 70.6 (42.2-75.2) % Lymph % (Auto) 21.2 (20.5-50.1) % Otero % (Auto) 6.8 (2-8) % Eos % (Auto) 1.3 (1.0-3.0) % Baso % (Auto) 0.1 (0.0-1.0) % Sodium 140 (136-145) mmol/L Potassium 3.5 (3.5-5.1) mmol/L Chloride 105 (98-107) mmol/L Carbon Dioxide 25 (21-32) mmol/L Anion Gap 13.5 H (7-13) mEq/L BUN 20 H (7-18) mg/dL Creatinine 0.92 (0.55-1.02) mg/dL Est Cr Clr Drug Dosing TNP Estimated GFR (MDRD) 59 BUN/Creatinine Ratio 21.7 (No establ ref range) Glucose 105 H (70-99) mg/dL Calcium 8.3 L (8.5-10.1) mg/dL Total Bilirubin 0.6 (0.2-1.0) mg/dL AST 23 (15-37) U/L ALT 24 (14-59) U/L Alkaline Phosphatase 176 H (46-116) U/L Total Protein 5.8 L (6.4-8.2) g/dL Albumin 2.7 L (3.4-5.0) g/dL Globulin 3.1 Albumin/Globulin Ratio 0.87 Urine Color (YELLOW) Urine Appearance (CLEAR) Urine pH (5.0-9.0) Ur Specific Marshall (1.005-1.030) Urine Protein (NEGATIVE) Urine Glucose (UA) (NEGATIVE) Urine Ketones (NEGATIVE) Urine Occult Blood (NEGATIVE) Urine Nitrite (NEGATIVE) Urine Bilirubin (NEGATIVE) Urine Urobilinogen (0.2-1.0) mg/dL Ur Leukocyte Esterase (NEGATIVE) Urine RBC (0-5) /HPF Urine WBC (0-5/HPF) /HPF Ur Epithelial Cells (NOT SEEN) /HPF Urine Bacteria (0-FEW/HPF) /HPF SARS-CoV-2 RNA (MARLON) Negative (NEGATIVE) 01/12/21 Range/Units 00:45 WBC (5.0-10.0) 10^3/uL RBC (4.2-5.4) 10^6/uL Hgb (12.0-16.0) g/dL Hct (37.0-47.0) % MCV (80-100) fL MCH (27.0-34.0) pg MCHC (33.0-35.0) g/dL Plt Count (150-450) 10^3/uL Neut % (Auto) (42.2-75.2) % Lymph % (Auto) (20.5-50.1) % Otero % (Auto) (2-8) % Eos % (Auto) (1.0-3.0) % Baso % (Auto) (0.0-1.0) % Sodium (136-145) mmol/L Potassium (3.5-5.1) mmol/L Chloride (98-107) mmol/L Carbon Dioxide (21-32) mmol/L Anion Gap (7-13) mEq/L BUN (7-18) mg/dL Creatinine (0.55-1.02) mg/dL Est Cr Clr Drug Dosing Estimated GFR (MDRD) BUN/Creatinine Ratio (No establ ref range) Glucose (70-99) mg/dL Calcium (8.5-10.1) mg/dL Total Bilirubin (0.2-1.0) mg/dL AST (15-37) U/L ALT (14-59) U/L Alkaline Phosphatase (46-116) U/L Total Protein (6.4-8.2) g/dL Albumin (3.4-5.0) g/dL Globulin Albumin/Globulin Ratio Urine Color Yellow (YELLOW) Urine Appearance Slightly cloudy (CLEAR) Urine pH 8.5 (5.0-9.0) Ur Specific Marshall 1.015 (1.005-1.030) Urine Protein Negative (NEGATIVE) Urine Glucose (UA) Negative (NEGATIVE) Urine Ketones Negative (NEGATIVE) Urine Occult Blood Moderate H (NEGATIVE) Urine Nitrite Positive H (NEGATIVE) Urine Bilirubin Negative (NEGATIVE) Urine Urobilinogen 0.2 (0.2-1.0) mg/dL Ur Leukocyte Esterase Large H (NEGATIVE) Urine RBC 10-20 H (0-5) /HPF Urine WBC 30-40 H (0-5/HPF) /HPF Ur Epithelial Cells Few (NOT SEEN) /HPF Urine Bacteria Many H (0-FEW/HPF) /HPF SARS-CoV-2 RNA (MARLON) (NEGATIVE) Result Diagrams: 01/12/21 00:20 01/12/21 00:20 - Problem List (1) Dementia SNOMED Code(s): 38296649 ICD Code: F03.90 - UNSPECIFIED DEMENTIA WITHOUT BEHAVIORAL DISTURBANCE Status: Acute Current Visit: Yes Qualifiers: Dementia type: unspecified type Dementia behavioral disturbance: without behavioral disturbance Qualified Code(s): F03.90 - Unspecified dementia without behavioral disturbance (2) Dislocated hip SNOMED Code(s): 162830325 ICD Code: S73.006A - UNSPECIFIED DISLOCATION OF UNSPECIFIED HIP, INIT ENCNTR Status: Acute Current Visit: Yes Qualifiers: Encounter type: initial encounter Laterality: left Qualified Code(s): S73.005A - Unspecified dislocation of left hip, initial encounter (3) Dysphagia SNOMED Code(s): 82534453, 748001188 ICD Code: R13.10 - DYSPHAGIA, UNSPECIFIED Status: Acute Current Visit: Yes Qualifiers: Dysphagia type: unspecified Qualified Code(s): R13.10 - Dysphagia, unspecified (4) Hx of seizure disorder SNOMED Code(s): 377571766 ICD Code: Z86.69 - PERSONAL HISTORY OF DIS OF THE NERVOUS SYS AND SENSE ORG ANS Status: Acute Current Visit: Yes (5) UTI (urinary tract infection) SNOMED Code(s): 03882837 ICD Code: N39.0 - URINARY TRACT INFECTION, SITE NOT SPECIFIED Status: Acute Current Visit: No Qualifiers: Urinary tract infection type: site unspecified Hematuria presence: without hematuria Qualified Code(s): N39.0 - Urinary tract infection, site not specified (6) Depressive disorder SNOMED Code(s): 40009535 ICD Code: F32.9 - MAJOR DEPRESSIVE DISORDER, SINGLE EPISODE, UNSPECIFIED Status: Chronic Current Visit: No Problem List Initiated/Reviewed/Updated: Yes Orders Last 24hrs: Active Orders 24 hr Category Date Time Status Admission Diagnosis [ADT] Stat ADT 01/12/21 01:16 Ordered Admission Status [Patient Status] [ADT] Stat ADT 01/12/21 01:16 Active Antiembolic Devices [RC] PER UNIT ROUTINE Care 01/12/21 01:42 Ordered Bedrest Bedside Commode [RC] ASDIRECTED Care 01/12/21 01:40 Ordered Oxygen Therapy [RC] PRN Care 01/12/21 01:40 Ordered Peripheral IV Care [RC] . DIRECTED Care 01/12/21 01:42 Ordered VTE/DVT Education [RC] PER UNIT ROUTINE Care 01/12/21 01:40 Ordered Vital Signs [RC] Q4H Care 01/12/21 01:40 Ordered Nothing per Oral Now Diet [DIET] Diet 01/12/21 Breakfast Ordered Pelvis wo Cont [CT] Urgent Exams 01/11/21 23:35 Ordered BASIC METABOLIC PANEL,BMP [CHEM] AM Lab 01/12/21 05:11 Ordered CBC WITH AUTO DIFF [HEME] AM Lab 01/12/21 05:11 Ordered CULTURE URINE [RM] Stat Lab 01/12/21 00:45 Received INR,PT,PROTHROMBIN TIME [COAG] AM Lab 01/12/21 05:11 Ordered INR,PT,PROTHROMBIN TIME [COAG] AM Lab 01/13/21 05:11 Ordered Acetaminophen [Tylenol Extra Strength] Med 01/12/21 09:00 Ordered 500 mg PO TID Ibuprofen [Motrin] Med 01/12/21 01:40 Ordered 400 mg PO Q6H PRN Levothyroxine [Synthroid] Med 01/12/21 09:00 Ordered 50 mcg PO QAM Morphine Med 01/12/21 01:38 Ordered 1 mg IVPUSH Q4H PRN Ondansetron [Zofran] Med 01/12/21 01:40 Ordered 4 mg IVPUSH Q6H PRN Sertraline [Zoloft] Med 01/12/21 21:00 Ordered 50 mg PO BEDTIME Sodium Chloride 0.9% [Normal Saline] 1,000 ml Med 01/12/21 01:45 Ordered IV ASDIRECTED Sodium Chloride 0.9% [Saline Flush] Med 01/12/21 01:40 Ordered 10 ml FLUSH ASDIRECTED PRN cefTRIAXone [Rocephin] 1 gm Med 01/12/21 02:00 Active Sodium Chloride 0.9% [Normal Saline AdvBag] 50 ml IV NOW cefTRIAXone [Rocephin] 1 gm Med 01/12/21 01:45 Ordered Sodium Chloride 0.9% [Normal Saline AdvBag] 50 ml IV Q24H cloNIDine Med 01/12/21 01:45 Ordered 0.2 mg TRDERM WEEKLY levETIRAcetam [Levetiracetam] Med 01/12/21 09:00 Ordered 250 mg PO BID Peripheral IV Insertion Adult [OM.PC] Routine Oth 01/12/21 01:40 Ordered Sequential Compression Device [OM.PC] Per Unit Routine Oth 01/12/21 01:42 Ordered Resuscitation Status Routine Resus Stat 01/12/21 01:40 Ordered Medication Orders Acetaminophen (Acetaminophen 500 Mg Tab) 500 mg PO TID PERRY Ceftriaxone Sodium 1 gm/ (Sodium Chloride) 50 mls @ 100 mls/hr IV Q24H PERRY Ceftriaxone Sodium 1 gm/ (Sodium Chloride) 50 mls @ 100 mls/hr IV NOW ONE Stop: 01/12/21 02:29 Sodium Chloride (Normal Saline) 1,000 mls @ 75 mls/hr IV ASDIRECTED PERRY Ibuprofen (Ibuprofen 400 Mg Tab) 400 mg PO Q6H PRN PRN Reason: Pain (mild 1-3) Levothyroxine Sodium (Levothyroxine 50 Mcg Tab) 50 mcg PO QAM PERRY Morphine Sulfate (Morphine 2 Mg/Ml Syringe) 1 mg IVPUSH Q4H PRN PRN Reason: moderate to severe pain, Non-Formulary Medication (Clonidine) 0.2 mg TRDERM WEEKLY [facility] Non-Formulary Medication (Levetiracetam [Levetiracetam]) 250 mg PO BID PERRY Ondansetron HCl (Ondansetron 4 Mg/2 Ml Sdv) 4 mg IVPUSH Q6H PRN PRN Reason: Nausea/Vomiting Sertraline HCl (Sertraline 50 Mg Tab) 50 mg PO BEDTIME PERRY Sodium Chloride (Sodium Chloride 0.9% 10 Ml Syringe) 10 ml FLUSH ASDIRECTED PRN PRN Reason: Keep Vein Open Assessment/Plan Comment:: left hip dislocation currently neuro/circulation stable will transport to surgical evaluation AJIT surgeon is available pain control with IV morphine keep npo, IVF check INR in AM check cbc in am h/o dementia high risk for delirium with pain meds h/o seizure dx cont keppra UTI - complicated with indwelling quevedo send urine cx start ceftriaxone depression cont zoloft htn cont clonidine patch check BMP in AM code status DNR/DNI per [place] records d/w ER and dr. Kulkarni
[2021-01-12] MEDS ORDERED: cefTRIAXone 1 GM in Sodium Chloride 0.9% 50 ML IV ONE (02:00)
[2021-01-12] MEDS: Morphine 2 MG/ML SYRINGE IVPUSH PRN ×2 (05:32→09:15)
[2021-01-12] MEDS ORDERED: Levothyroxine 50 MCG Tab PO SCH (06:00)
[2021-01-12 07:14] LABS: ANION GAP 13.4 mEq/L (7-13)
[2021-01-12] MEDS ORDERED: Acetaminophen 500 MG Tab PO SCH (09:00)
[2021-01-12] MEDS ORDERED: LEVETIRACETAM 100 MG/ML PO SCH (09:00)
--- NOTE | 2021-01-12 09:42 | CR ---
PROCEDURE INFORMATION: Exam: XR Left Hip Exam date and time: 01/12/2021 9:08 AM Age: 80 years old Clinical indication: Other: Dislocated TECHNIQUE: Imaging protocol: XR Left hip. Views: 2 or 3 views hip with pelvis when performed. COMPARISON: CT Pelvis wo Cont 12/19/2020 9:05 AM FINDINGS: Bones/joints: Dislocated left bipolar hip prosthesis. The femur is dislocated superiorly and laterally in relation to the acetabulum. Stable tiny bone fragments project adjacent to the superolateral acetabulum Soft tissues: Lateral soft tissue skin beata and soft tissue swelling. IMPRESSION: Stable superior laterally dislocated left bipolar hip prosthesis
--- NOTE | 2021-01-12 10:26 | CR ---
PROCEDURE INFORMATION: Exam: XR Left Hip Exam date and time: 01/12/2021 10:10 AM Age: 80 years old Clinical indication: Other: Post reduction; Prior surgery; Surgery date: 1-6 months TECHNIQUE: Imaging protocol: XR Left hip. Views: 1 view hip with pelvis when performed. COMPARISON: CR Hip Min 2V or 3V Lt 01/12/2021 9:08 AM FINDINGS: Bones/joints: Partial relocation of the dislocated left hip joint. There is a bipolar hip prosthesis. The cup portion of the prosthesis remains displaced lateral to the viejas acetabulum. The ball portion of the prosthesis is located in the acetabulum. Soft tissues: Soft tissue the skin beata and swelling about the left hip IMPRESSION: 1. Left bipolar hip prosthesis with laterally dislocated cup portion 2. The ball portion of the prosthesis is now located in the viejas acetabulum
--- NOTE | 2021-01-12 10:55 | PCM.DCSUM1 ---
Discharge Summary - Hospital Course Free Text/Narrative:: 80 yo presented with left hip dislocation left hip dislocation following recent left hip surgery with hthe help of anesthesia we reduced the hip but as soon as anesthesia wore off and pt started to move it dislocated again currently neuro/circulation stable will transport to surgical evaluation to [facility] - dr. Meyer pain control with IV morphine keep npo, IVF h/o dementia high risk for delirium with pain meds h/o seizure dx cont keppra UTI - complicated with indwelling quevedo urine cx: pending start ceftriaxone afib rate is controlled not on chronic anticoagulation depression cont zoloft htn cont clonidine patch code status DNR/DNI per [facility] records Diagnosis: Stroke: No - Discharge Data Discharge Date: 01/12/21 Discharge Disposition: DC/Tfer to Acute Hospital 02 Condition: Fair - Referral to Home Health Primary Care Physician: Merly Kulkarni MD - Discharge Diagnosis/Problem(s) (1) Dementia SNOMED Code(s): 17956843 ICD Code: F03.90 - UNSPECIFIED DEMENTIA WITHOUT BEHAVIORAL DISTURBANCE Status: Acute Current Visit: Yes Qualifiers: Dementia type: unspecified type Dementia behavioral disturbance: without behavioral disturbance Qualified Code(s): F03.90 - Unspecified dementia without behavioral disturbance (2) Dislocated hip SNOMED Code(s): 106086267 ICD Code: S73.006A - UNSPECIFIED DISLOCATION OF UNSPECIFIED HIP, INIT ENCNTR Status: Acute Current Visit: Yes Qualifiers: Encounter type: initial encounter Laterality: left Qualified Code(s): S73.005A - Unspecified dislocation of left hip, initial encounter (3) Dysphagia SNOMED Code(s): 50504415, 045050737 ICD Code: R13.10 - DYSPHAGIA, UNSPECIFIED Status: Acute Current Visit: Yes Qualifiers: Dysphagia type: unspecified Qualified Code(s): R13.10 - Dysphagia, unspecified (4) Hx of seizure disorder SNOMED Code(s): 686955018 ICD Code: Z86.69 - PERSONAL HISTORY OF DIS OF THE NERVOUS SYS AND SENSE ORGANS Status: Acute Current Visit: Yes (5) UTI (urinary tract infection) SNOMED Code(s): 71178580 ICD Code: N39.0 - URINARY TRACT INFECTION, SITE NOT SPECIFIED Status: Acute Current Visit: No Qualifiers: Urinary tract infection type: site unspecified Hematuria presence: without hematuria Qualified Code(s): N39.0 - Urinary tract infection, site not specified (6) Depressive disorder SNOMED Code(s): 58298826 ICD Code: F32.9 - MAJOR DEPRESSIVE DISORDER, SINGLE EPISODE, UNSPECIFIED Status: Chronic Current Visit: No (7) Afib SNOMED Code(s): 44099099 ICD Code: I48.91 - UNSPECIFIED ATRIAL FIBRILLATION Status: Acute Current Visit: Yes - Patient Instructions Diet: Heart Healthy Diet Activity: As Tolerated - Discharge Plan *PRESCRIPTION DRUG MONITORING PROGRAM REVIEWED*: No *COPY OF PRESCRIPTION DRUG MONITORING REPORT IN PATIENT SUSU: No Home Medications: Home Meds Acetaminophen [Tylenol Extra Strength] 500 mg PO TID 01/11/21 [History] Levothyroxine [Synthroid] 50 mcg PO QAM 01/11/21 [History] Sertraline HCl 50 mg PO BEDTIME 01/11/21 [History] cloNIDine [Catapres TTS-2] 0.2 mg TRDERM WEEKLY 01/11/21 [History] levETIRAcetam [Levetiracetam] 250 mg PO BID 01/11/21 [History] cefTRIAXone [Rocephin] 1 gm IV Q24H vial 01/12/21 [Rx] Oxygen Therapy Mode: Nasal Cannula - Discharge Summary/Plan Comment DC Time >30 min.: Yes Total # of Minutes for Discharge Time: 35 min arranging transfer, accepting physician, ambulance, ambulance and transfer forms - General Info Date of Service: 01/12/21 Functional Status: Denies: Pain Controlled (in pain when hip is moved) - Review of Systems Pulmonary: Denies: Shortness of Breath Cardiovascular: Denies: Edema Genitourinary: Reports: Other (quevedo catheter) - Patient Data Vitals - Most Recent: Last Vital Signs Temp 98.6 F 01/12/21 07:44 Pulse 66 01/12/21 07:44 Resp 20 01/12/21 07:44 BP 150/83 H 01/12/21 07:44 Pulse Ox 92 L 01/12/21 07:44 Weight - Most Recent: 151 lb 6.4 oz I&O - Last 24 hours: Intake & Output 01/11/21 01/12/21 01/12/21 22:59 06:59 14:59 Output Total 1200 Balance -1200 Lab Results - Last 24 hrs: Laboratory Results - last 24 hr 01/12/21 01/12/21 01/12/21 Range/Units 00:20 00:20 00:30 WBC 7.5 (5.0-10.0) 10^3/uL RBC 3.93 L (4.2-5.4) 10^6/uL Hgb 12.0 D (12.0-16.0) g/dL Hct 36.6 L (37.0-47.0) % MCV 93.1 (80-100) fL MCH 30.5 (27.0-34.0) pg MCHC 32.8 L (33.0-35.0) g/dL Plt Count 194 (150-450) 10^3/uL Neut % (Auto) 70.6 (42.2-75.2) % Lymph % (Auto) 21.2 (20.5-50.1) % [place] % (Auto) 6.8 (2-8) % Eos % (Auto) 1.3 (1.0-3.0) % Baso % (Auto) 0.1 (0.0-1.0) % PT (9.0-12.0) SEC INR (0.9-1.2) Sodium 140 (136-145) mmol/L Potassium 3.5 (3.5-5.1) mmol/L Chloride 105 (98-107) mmol/L Carbon Dioxide 25 (21-32) mmol/L Anion Gap 13.5 H (7-13) mEq/L BUN 20 H (7-18) mg/dL Creatinine 0.92 (0.55-1.02) mg/dL Est Cr Clr Drug Dosing TNP Estimated GFR (MDRD) 59 BUN/Creatinine Ratio 21.7 (No establ ref range) Glucose 105 H (70-99) mg/dL Calcium 8.3 L (8.5-10.1) mg/dL Total Bilirubin 0.6 (0.2-1.0) mg/dL AST 23 (15-37) U/L ALT 24 (14-59) U/L Alkaline Phosphatase 176 H (46-116) U/L Total Protein 5.8 L (6.4-8.2) g/dL Albumin 2.7 L (3.4-5.0) g/dL Globulin 3.1 Albumin/Globulin Ratio 0.87 Urine Color (YELLOW) Urine Appearance (CLEAR) Urine pH (5.0-9.0) Ur Specific Garibaldi (1.005-1.030) Urine Protein (NEGATIVE) Urine Glucose (UA) (NEGATIVE) Urine Ketones (NEGATIVE) Urine Occult Blood (NEGATIVE) Urine Nitrite (NEGATIVE) Urine Bilirubin (NEGATIVE) Urine Urobilinogen (0.2-1.0) mg/dL Ur Leukocyte Esterase (NEGATIVE) Urine RBC (0-5) /HPF Urine WBC (0-5/HPF) /HPF Ur Epithelial Cells (NOT SEEN) /HPF Urine Bacteria (0-FEW/HPF) /HPF SARS-CoV-2 RNA (MARLON) Negative (NEGATIVE) 01/12/21 01/12/21 01/12/21 Range/Units 00:45 06:28 06:28 WBC 9.6 (5.0-10.0) 10^3/uL RBC 4.27 (4.2-5.4) 10^6/uL Hgb 13.1 (12.0-16.0) g/dL Hct 39.7 (37.0-47.0) % MCV 93.0 (80-100) fL MCH 30.7 (27.0-34.0) pg MCHC 33.0 (33.0-35.0) g/dL Plt Count 223 (150-450) 10^3/uL Neut % (Auto) 76.7 H (42.2-75.2) % Lymph % (Auto) 17.3 L (20.5-50.1) % [place] % (Auto) 5.5 (2-8) % Eos % (Auto) 0.4 L (1.0-3.0) % Baso % (Auto) 0.1 (0.0-1.0) % PT (9.0-12.0) SEC INR (0.9-1.2) Sodium 143 (136-145) mmol/L Potassium 3.4 L (3.5-5.1) mmol/L Chloride 109 H (98-107) mmol/L Carbon Dioxide 24 (21-32) mmol/L Anion Gap 13.4 H (7-13) mEq/L BUN 18 (7-18) mg/dL Creatinine 0.95 (0.55-1.02) mg/dL Est Cr Clr Drug Dosing 42.50 Estimated GFR (MDRD) 57 BUN/Creatinine Ratio (No establ ref range) Glucose 102 H (70-99) mg/dL Calcium 8.5 (8.5-10.1) mg/dL Total Bilirubin (0.2-1.0) mg/dL AST (15-37) U/L ALT (14-59) U/L Alkaline Phosphatase (46-116) U/L Total Protein (6.4-8.2) g/dL Albumin (3.4-5.0) g/dL Globulin Albumin/Globulin Ratio Urine Color Yellow (YELLOW) Urine Appearance Slightly cloudy (CLEAR) Urine pH 8.5 (5.0-9.0) Ur Specific Gar[place]di 1.015 (1.005-1.030) Urine Protein Negative (NEGATIVE) Urine Glucose (UA) Negative (NEGATIVE) Urine Ketones Negative (NEGATIVE) Urine Occult Blood Moderate H (NEGATIVE) Urine Nitrite Positive H (NEGATIVE) Urine Bilirubin Negative (NEGATIVE) Urine Urobilinogen 0.2 (0.2-1.0) mg/dL Ur Leukocyte Esterase Large H (NEGATIVE) Urine RBC 10-20 H (0-5) /HPF Urine WBC 30-40 H (0-5/HPF) /HPF Ur Epithelial Cells Few (NOT SEEN) /HPF Urine Bacteria Many H (0-FEW/HPF) /HPF SARS-CoV-2 RNA (MARLON) (NEGATIVE) 01/12/21 Range/Units 06:28 WBC (5.0-10.0) 10^3/uL RBC (4.2-5.4) 10^6/uL Hgb (12.0-16.0) g/dL Hct (37.0-47.0) % MCV (80-100) fL MCH (27.0-34.0) pg MCHC (33.0-35.0) g/dL Plt Count (150-450) 10^3/uL Neut % (Auto) (42.2-75.2) % Lymph % (Auto) (20.5-50.1) % [place] % (Auto) (2-8) % Eos % (Auto) (1.0-3.0) % Baso % (Auto) (0.0-1.0) % PT 10.7 (9.0-12.0) SEC INR 1.1 (0.9-1.2) Sodium (136-145) mmol/L Potassium (3.5-5.1) mmol/L Chloride (98-107) mmol/L Carbon Dioxide (21-32) mmol/L Anion Gap (7-13) mEq/L BUN (7-18) mg/dL Creatinine (0.55-1.02) mg/dL Est Cr Clr Drug Dosing Estimated GFR (MDRD) BUN/Creatinine Ratio (No establ ref range) Glucose (70-99) mg/dL Calcium (8.5-10.1) mg/dL Total Bilirubin (0.2-1.0) mg/dL AST (15-37) U/L ALT (14-59) U/L Alkaline Phosphatase (46-116) U/L Total Protein (6.4-8.2) g/dL Albumin (3.4-5.0) g/dL Globulin Albumin/Globulin Ratio Urine Color (YELLOW) Urine Appearance (CLEAR) Urine pH (5.0-9.0) Ur Specific Garibaldi (1.005-1.030) Urine Protein (NEGATIVE) Urine Glucose (UA) (NEGATIVE) Urine Ketones (NEGATIVE) Urine Occult Blood (NEGATIVE) Urine Nitrite (NEGATIVE) Urine Bilirubin (NEGATIVE) Urine Urobilinogen (0.2-1.0) mg/dL Ur Leukocyte Esterase (NEGATIVE) Urine RBC (0-5) /HPF Urine WBC (0-5/HPF) /HPF Ur Epithelial Cells (NOT SEEN) /HPF Urine Bacteria (0-FEW/HPF) /HPF SARS-CoV-2 RNA (MARLON) (NEGATIVE) Med Orders - Current: Current Medications Acetaminophen (Acetaminophen 500 Mg Tab) [address] [facility] Last Admin: 01/12/21 09:16 Dose: Not Given Documented by: Clonidine HCl (Clonidine 0.1 Mg/Day Transdermal Patch) 0.[address] [facility] Ceftriaxone Sodium 1 gm/ (Sodium Chloride) 50 mls @ 100 mls/hr IV Q24H [facility] Sodium Chloride (Normal Saline) 1,000 mls @ 75 mls/hr IV ASDIRECTED [facility] Last Admin: 01/12/21 02:01 Dose: 75 mls/hr Documented by: Ibuprofen (Ibuprofen 400 Mg Tab) 400 mg PO Q6H PRN PRN Reason: Pain (mild 1-3) Levothyroxine Sodium (Levothyroxine 50 Mcg Tab) 50 mcg PO 0600 PERRY Last Admin: 01/12/21 05:33 Dose: 50 mcg Documented by: Morphine Sulfate (Morphine 2 Mg/Ml Syringe) 1 mg IVPUSH Q4H PRN PRN Reason: moderate to severe pain, Last Admin: 01/12/21 09:15 Dose: 1 mg Documented by: Non-Formulary Medication (Levetiracetam [Levetiracetam]) 250 mg PO BID PERRY Ondansetron HCl (Ondansetron 4 Mg/2 Ml Sdv) 4 mg IVPUSH Q6H PRN PRN Reason: Nausea/Vomiting Sertraline HCl (Sertraline 50 Mg Tab) 50 mg PO BEDTIME PERRY Sodium Chloride (Sodium Chloride 0.9% 10 Ml Syringe) 10 ml FLUSH ASDIRECTED PRN PRN Reason: Keep Vein Open Discontinued Medications Ceftriaxone Sodium 1 gm/ (Sodium Chloride) 50 mls @ 100 mls/hr IV NOW ONE Stop: 01/12/21 02:29 Last Admin: 01/12/21 02:01 Dose: 100 mls/hr Documented by: Morphine Sulfate (Morphine 2 Mg/Ml Syringe) 2 mg SUBCUT ONETIME ONE Stop: 01/11/21 23:53 Last Admin: 01/12/21 00:06 Dose: 2 mg Documented by: Morphine Sulfate (Morphine 2 Mg/Ml Syringe) 2 mg IVPUSH ONETIME ONE Stop: 01/12/21 00:53 Last Admin: 01/12/21 00:57 Dose: 2 mg Documented by: Morphine Sulfate (Morphine 2 Mg/Ml Syringe) 2 mg IVPUSH ONETIME ONE Stop: 01/12/21 01:16 Last Admin: 01/12/21 01:42 Dose: 2 mg Documented by: - Exam General: Reports: Alert. Denies: Oriented Lungs: Reports: Normal Respiratory Effort, Rhonchi Cardiovascular: Reports: Irregular Rhythm GI/Abdominal Exam: Normal Bowel Sounds, Soft, Non-Tender Extremities: No Pedal Edema, Other (left hip dislocation ) Psy/Mental Status: Reports: Alert, Agitated (episodically)
[2021-01-12] MEDS ORDERED: Propofol 200 MG/20 ML SDV IV ONE (11:14)
[2021-01-12] MEDS ORDERED: fentaNYL 100 MCG/2 ML SDV IV ONE (11:14)
[2021-01-12] MEDS ORDERED: cefTRIAXone 1 GM in Sodium Chloride 0.9% 50 ML IV SCH (21:00)
[2021-01-12] MEDS ORDERED: Sertraline 50 MG Tab PO SCH (21:00)
[2021-01-14] MEDS ORDERED: cloNIDine 0.1 MG/Day Transdermal Patch TOP SCH (09:00)
== END 2021-01-12 11:15 ==
LOC: DL.ED 23:15 → DL.MS 01-12 01:15
PROVIDERS: ADMIT Internal Medicine; ATTEND Internal Medicine
DX: S73.005A Unspecified dislocation of left hip, initial encounter (principal); I48.91 Unspecified atrial fibrillation; I25.10 Atherosclerotic heart disease of native coronary artery without angina pectoris; I10 Essential (primary) hypertension; E03.9 Hypothyroidism, unspecified; E66.9 Obesity, unspecified; F03.90 Unspecified dementia, unspecified severity, without behavioral disturbance, psychotic disturbance, mood disturbance, and anxiety; N39.0 Urinary tract infection, site not specified; F32.9 Major depressive disorder, single episode, unspecified; G40.909 Epilepsy, unspecified, not intractable, without status epilepticus; Z01.812 Encounter for preprocedural laboratory examination; Z79.899 Other long term (current) drug therapy; Z88.2 Allergy status to sulfonamides; Z88.8 Allergy status to other drugs, medicaments and biological substances; Z79.890 Hormone replacement therapy; Z98.890 Other specified postprocedural states; Z20.822 Contact with and (suspected) exposure to COVID-19
CPT/HCPCS: 01200; 36415; 80048; 80053; 81001; 85025; 85610; 87086; 87088; 87186; 96365; 96372; 96374; 96375; 96376; 99285-25; A9270-GY; G0378; J0696; J2270; J2704; J3010; J7030; U0002

== ENCOUNTER 2021-01-18 07:07 | Emergency (ER) | payer MEDICARE, OTHER ==
[2021-01-18] MEDS ORDERED: Etomidate 2 MG/ML 20 ML SDV IVPUSH ONE (07:08)
--- NOTE | 2021-01-18 07:36 | PCM.SN.2 ---
- Free Text/Narrative Note: Janny Mendez is an 80-year-old female resident of [facility]. She is being sent to the ER for evaluation of left hip pain: suspect recurrent dislocation of recent left hip arthroplasty. Discussed with Dr. iBlls. History: 12/19/2020 Found to have transverse fracture of left femoral neck. No known fall. Limited bed availability, sent to [facility]. Dr. Jagdish Meyer, accepting Orthopedist. 12/21/2020 Left hemiarthoplasty, [facility], Dr. Meyer. 12/22/2020 Re-admitted to [facility] 01/12/2021 Sent to ER for left hip pain with deformity. X-rays: Dislocation of prosthesis, left hip. Admitted overnight for OBS until Ortho available in AM. ER provide did attempt to reduce hip but came out again immediately after reduction. Transferred back to [facility], Dr. Meyer accepting physician. 01/12/2021 Left hip arthroplasty revision for left hip dislocation. Dr. Meyer, [facility] 01/14/2021 Re-admitted to [facility] 01/18/2021 Received call from nurse at [facility]. Janny once again with left hip pain and deformity. Suspected recurrent dislocation. She is supposed to have an abductor pillow between legs. Overnight, she ripped open the Velcro straps and threw the device on the floor. Janny has advanced dementia and has no understanding of current situation. Case discussed with Dr. Bills. Will send Janny back to ER for evaluation. Dr. Meyer's contact information provided to Dr. Bills. Op Note of 01/12/[address] Jagdish Meyer, Orthopedics, [facility]: [phone]. Nurse: Deanna Meyer I called Janny's , Agustin, and informed him of above. [phone]
--- NOTE | 2021-01-18 07:48 | EDM.PDOC ---
ED HPI GENERAL MEDICAL PROBLEM - General Chief Complaint: Lower Extremity Injury/Pain Stated Complaint: HIP PAIN Time Seen by Provider: 01/18/21 07:48 Source of Information: Reports: Patient, EMS, Old Records, Provider (Dr. Kulkarni), RN, RN Notes Reviewed History Limitations: Reports: Altered Mental Status (Patient confused with advanced dementia) - History of Present Illness INITIAL COMMENTS - FREE TEXT/NARRATIVE: Pt arrives to ER from [facility] by ambulance with c/o suspected dislocation of left hip s/p recent revised total arthroplasty. Pt has advanced dementia and is disoriented at baseline. Pt is unable to provide any history. Detailed history provided by Dr. Kulkarni, see her provider note dated 01/18/21 regarding this visit. Onset: Unknown/Unsure Duration: Constant Location: Reports: Lower Extremity, Left - Related Data Allergies Allergy/AdvReac Type Severity Reaction Status Date / Time bupropion HCl Allergy Depression Verified 01/18/21 08:29 [From Wellbutrin] sulfamethoxazole Allergy Rash Verified 01/18/21 08:29 [From Bactrim] trimethoprim [From Bactrim] Allergy Rash Verified 01/18/21 08:29 Home Meds: Home Meds Acetaminophen [Tylenol Extra Strength] 500 mg PO TID 01/11/21 [History] Levothyroxine [Synthroid] 50 mcg PO QAM 01/11/21 [History] Sertraline HCl 50 mg PO BEDTIME 01/11/21 [History] cloNIDine [Catapres TTS-2] 0.2 mg TRDERM WEEKLY 01/11/21 [History] levETIRAcetam [Levetiracetam] 250 mg PO BID 01/11/21 [History] cefTRIAXone [Rocephin] 1 gm IV Q24H vial 01/12/21 [Rx] Past Medical History HEENT History: Reports: Cataract, Impaired Vision Cardiovascular History: Reports: Afib, CAD, Hypertension Respiratory History: Reports: None Gastrointestinal History: Reports: None Genitourinary History: Reports: None CRAFT ARTIST History: Reports: , Other (See Below) Other CRAFT ARTIST History: oophrectomy Musculoskeletal History: Reports: Fracture, Other (See Below) Other Musculoskeletal History: left hip fx. Neurological History: Reports: Seizure, Other (See Below) Other Neuro History: severe dementia Psychiatric History: Reports: Dementia, Depression, Psychosis Endocrine/Metabolic History: Reports: Hypothyroidism, Obesity/BMI 30+ Hematologic History: Reports: None Oncologic (Cancer) History: Reports: None - Infectious Disease History Infectious Disease History: Reports: Chicken Pox - Past Surgical History Head Surgeries/Procedures: Reports: None HEENT Surgical History: Reports: Tonsillectomy Female Surgical History: Reports: Cystectomy Social & Family History - Family History Family Medical History: Unobtainable - Caffeine Use Caffeine Use: Reports: Coffee, Tea - Living Situation & Occupation Living situation: Reports: , Extended Care Facility Occupation: Retired Review of Systems - Review of Systems Review Of Systems: Unable To Obtain Reason Not Obtained: Advanced dementia ED EXAM, GENERAL - Physical Exam Exam: See Below Exam Limited By: No Limitations General Appearance: Alert, No Apparent Distress Nose: Normal Inspection Throat/Mouth: Normal Lips, No Airway Compromise Head: Atraumatic, Normocephalic Neck: Normal Inspection Respiratory/Chest: No Respiratory Distress, Lungs Clear, No Accessory Muscle Use, Decreased Breath Sounds Cardiovascular: Irregularly Irregular Peripheral Pulses: 1+: Dorsalis Pedis (L), Dorsalis Pedis (R), 2+: Posterior Tibial (L), Posterior Tibial (R), 3+: Femoral (L), Femoral (R) GI/Abdominal: Normal Bowel Sounds, Soft, Non-Tender Neurological: Alert, No Motor/Sensory Deficits, Confused (Disoriented) Psychiatric: Flat Affect Skin Exam: Warm, Dry, Wound/Incision (Left hip incision intact with staple in place, serosanguinous drainage, no erythema or increased warmth) ED TRAUMA EXTREMITY PROCEDURES - Joint Reduction Left Hip Sedation: Conscious Sedation (See ENGAGEMENT DIRECTOR note by Scot Davila) Technique: Other (Manual closed reduction) Number of Attempts: 2 Post-Reduction Imaging: Other (Hip will not remain reduced, slips back out spontaneously.) Joint Reduction Complications: No Course - Vital Signs Last Recorded V/S: Last Vital Signs Temp 96.7 F L 01/18/21 08:23 Pulse 116 H 01/18/21 08:23 Resp 13 01/18/21 08:23 BP 91/73 01/18/21 08:23 Pulse Ox 98 01/18/21 08:23 - Orders/Labs/Meds Orders: Active Orders 24 hr Category Date Time Status Hip Min 2V or 3V Lt [CR] Routine Exams 01/18/21 09:35 Ordered - Radiology Interpretation Free Text/Narrative:: [facility] [place] [facility] Final Radiology Report Call: [phone] assistance Online chat: [email or web address] Name: JAGJIT COLON Age: 80Years F Date: 01/18/2021 SSN: -- : 1940 Study: CR HIP MIN 2V OR 3V W PELVIS LT Requesting Physician: HU YING Images: 2 Addl Studies: Provided Clinical History: Suspected recurrent dislocation Contrast: Contrast Medium: Contrast Amount: Contrast Method: CONFIDENTIALITY STATEMENT This report is intended only for use by the referring physician, and only in accordance with law. If you received this in error, call [phone]. Page 1 of 1 PROCEDURE INFORMATION: Exam: XR Left Hip Exam date and time: 01/18/2021 8:09 AM Age: 80 years old Clinical indication: Suspected recurrent dislocation TECHNIQUE: Imaging protocol: XR Left hip. Views: 2 or 3 views hip with pelvis when performed. COMPARISON: CR Hip Min 1V Lt 01/12/2021 10:10 AM FINDINGS: Bones/joints: Prior left bipolar hip arthroplasty. The femoral component appears to be in the acetabular cup. The combined acetabular cup and femoral component are dislocated out of the bony acetabulum in a superior direction. Soft tissues: Diffuse soft tissue swelling and gas lateral to the left hip presumably related to recent surgery given the presence of skin beata. IMPRESSION: The combined acetabular cup and femoral component are dislocated out of the bony acetabulum. Thank you for allowing us to participate in the care of your patient. Dictated and Authenticated by: Deepak Finnegan MD 01/18/2021 8:43 AM Central Time ([place] & [place]) - Re-Assessments/Exams Free Text/Narrative Re-Assessment/Exam: 01/18/21 10:[address] Meyer, the pt's orthopedic surgeon. Dr. Meyer advised to attempt reduction of the left hip. The left hip would not stay reduced. I called Dr. Meyer back and he advised [facility] care, and he will coordinate transfer of the pt back to [place] between now 01/21/21. The pt has found a position of comfort with the left knee slightly flexed and the femur internally rotated. I informed Dr. Kulkarni of the serosanguineous drainage from the otherwise intact left hip incision. Departure - Departure Time of Disposition: 10:13 (discharged back to [facility] to care of Dr[facility] Kulkarni) Disposition: DC/Tfer to [facility] Condition: Fair Clinical Impression: Dislocation of internal left hip prosthesis, subsequent encounter Recurrent dislocation of hip joint prosthesis Qualifiers: Encounter type: subsequent encounter Qualified Code(s): T84.029D - Dislocation of unspecified internal joint prosthesis, subsequent encounter - Discharge Information *PRESCRIPTION DRUG MONITORING PROGRAM REVIEWED*: Not Applicable *COPY OF PRESCRIPTION DRUG MONITORING REPORT IN PATIENT SUSU: Not Applicable Instructions: Hip Dislocation Forms: ED Department Discharge Additional Instructions: Discharge back to [facility] to care of Dr. Kulkarni with anticipation of [facility] to [place] to Dr. Meyer between now and 12/22/20. Sepsis Event Note (ED) - Focused Exam Vital Signs: Vital Signs Temp Pulse Resp BP Pulse Ox 01/18/21 08:23 96.7 F L 116 H 13 91/73 98 - My Orders Last 24 Hours: My Active Orders 01/18/21 09:35 Hip Min 2V or 3V Lt [CR] Routine - Assessment/Plan Last 24 Hours: My Active Orders 01/18/21 09:35 Hip Min 2V or 3V Lt [CR] Routine
--- NOTE | 2021-01-18 08:44 | CR ---
PROCEDURE INFORMATION: Exam: XR Left Hip Exam date and time: 01/18/2021 8:09 AM Age: 80 years old Clinical indication: Suspected recurrent dislocation TECHNIQUE: Imaging protocol: XR Left hip. Views: 2 or 3 views hip with pelvis when performed. COMPARISON: CR Hip Min 1V Lt 01/12/2021 10:10 AM FINDINGS: Bones/joints: Prior left bipolar hip arthroplasty. The femoral component appears to be in the acetabular cup. The combined acetabular cup and femoral component are dislocated out of the bony acetabulum in a superior direction. Soft tissues: Diffuse soft tissue swelling and gas lateral to the left hip presumably related to recent surgery given the presence of skin beata. IMPRESSION: The combined acetabular cup and femoral component are dislocated out of the bony acetabulum.
== END 2021-01-18 11:30 ==
LOC: DL.ED 07:07
DX: T84.021D Dislocation of internal left hip prosthesis, subsequent encounter (principal); I48.91 Unspecified atrial fibrillation; I25.10 Atherosclerotic heart disease of native coronary artery without angina pectoris; I10 Essential (primary) hypertension; E03.9 Hypothyroidism, unspecified; E66.9 Obesity, unspecified; Z88.8 Allergy status to other drugs, medicaments and biological substances; Z88.2 Allergy status to sulfonamides; Z79.899 Other long term (current) drug therapy
CPT/HCPCS: 01212; 27265; 73502; 99284; J3490